=== PATIENT | female | born 1965 | race Caucasian/White ===

== ENCOUNTER 2017-01-07 16:54 | Emergency (ER) | payer OTHER ==
[2017-01-07] MEDS ORDERED: MAG HYDROX/AL HYDROX/SIMETH 30 ML UDC PO STA (17:18)
[2017-01-07] MEDS ORDERED: LIDOCAINE VISCOUS 2% 15 ML UDC MM STA (17:18)
[2017-01-07] MEDS ORDERED: MAG HYDROX/AL HYDROX/SIMETH 30 ML UDC ONE (17:23)
[2017-01-07] MEDS ORDERED: LIDOCAINE VISCOUS 2% 15 ML UDC MM ONE (17:23)
[2017-01-07] MEDS ORDERED: SUCRALFATE 1 GM/10 ML UDC PO STA (17:43)
[2017-01-07] MEDS ORDERED: SUCRALFATE 1 GM/10 ML UDC ONE (17:47)
== END 2017-01-07 18:47 | disposition home or self-care (01) ==
DX: K29.00 Acute gastritis without bleeding (principal); R10.13 Epigastric pain
CPT/HCPCS: 36415; 80053; 83690; 83735; 84484; 85025; 87339; 93005; 93010; 99283; 99284; A9270

== ENCOUNTER 2017-04-12 06:00 | Outpatient (CLI) | payer OTHER | END 2017-04-12 06:01 | disposition short-term general hospital (02) | LOC: EMS 06:00 | PROVIDERS: ATTEND Surgery | DX: R10.10 Upper abdominal pain, unspecified (principal) | CPT/HCPCS: A0425; A0427 ==

== ENCOUNTER 2018-08-06 19:37 | Outpatient (CLI) | payer OTHER | END 2018-08-06 19:38 | disposition critical access hospital (66) | LOC: EMS 19:37 | PROVIDERS: ATTEND Surgery | DX: M25.562 Pain in left knee (principal); W13.8XXA Fall from, out of or through other building or structure, initial encounter; Y92.008 Other place in unspecified non-institutional (private) residence as the place of occurrence of the external cause | CPT/HCPCS: A0425; A0429 ==

== ENCOUNTER 2018-08-06 20:14 | Emergency (ER) | payer OTHER ==
[2018-08-06] MEDS ORDERED: ONDANSETRON ODT 4 MG TABLET TL STA (21:24)
--- NOTE | 2018-08-06 21:28 | XRAY Report ---
Reason: twisted fell injuring L knee Procedure Date: 08/06/2018 Accession Number: [id number] / [id number] Procedure: XR - Knee 3 View LT CPT Code: FULL RESULT: EXAM: LEFT KNEE RADIOGRAPHY EXAM DATE: 08/06/2018 09:12 PM. CLINICAL HISTORY: Left knee pain. COMPARISON: None. TECHNIQUE: 3 views. FINDINGS: Bones: There is no fracture or bone lesion demonstrated. Joints: Minimal to mild tricompartmental DJD changes are seen. Alignment is preserved with no effusion. Soft Tissues: Normal. No soft tissue swelling. IMPRESSION: No acute findings. Minimal to mild DJD changes seen. RADIA
[2018-08-06] MEDS ORDERED: ACETAMINOPHEN 500 MG TABLET PO STA (21:35)
--- NOTE | 2018-08-06 21:46 | ED Physician Documentation ---
PD HPI LOWER EXT INJURY - Stated complaint Stated Complaint: KNEE PAIN - Chief complaint Chief Complaint: Trauma Ext - History obtained from History obtained from: Patient - Additional information Additional information: 53-year-old female presents the emergency department for evaluation of an injury to her Left knee which occurred just prior to arrival at home. The patient stepped through a portion of her deck and twisted. The patient denies injury to her head, neck, torso or upper extremities. Symptoms are described as moderate. No other associated symptoms. Review of Systems Constitutional: denies: Fever Eyes: denies: Loss of vision Cardiac: denies: Chest pain / pressure GI: denies: Abdominal Pain Skin: reports: Abrasion (s). denies: Laceration (s) Musculoskeletal: reports: Extremity pain, Joint pain. denies: Neck pain Neurologic: denies: Head injury Immunocompromised: reports: Chemotherapy PD PAST MEDICAL HISTORY - Present Medications Home Medications: Ambulatory Orders Medication Instructions Recorded Confirmed Levothyroxine [Synthroid] 112 01/07/17 Lisinopril 01/07/17 Pantoprazole [Protonix] 01/07/17 Pantoprazole [Protonix] 40 mg PO DAILY #30 tablet 01/07/17 Sucralfate 1 gm PO QID #40 tablet 01/07/17 - Allergies Allergies/Adverse Reactions: Allergies Allergy/AdvReac Type Severity Reaction Status Date / Time Penicillins Allergy Hives Verified 08/06/18 20:24 - Social History Does the pt smoke?: No Smoking Status: Never smoker PD ED PE NORMAL - General General: Alert and oriented X 3, No acute distress - HEENT HEENT: Atraumatic, PERRL, EOMI, Ears normal - Derm Derm: Other (Abrasions to the left knee) - Extremities Extremities: No deformity, Normal ROM s pain (A comprehensive knee exam was limited secondary to the patient's pain and discomfort). No: No tenderness to palpate (The patient has tenderness to palpation of the left knee, there is no crepitus or joint effusion. The patient does have abrasions and a contusion. The patient has full active range of motion of bilateral hips, knees and ankles. There is a normal dorsalis pedis pulse and normal cap refill), No edema - Neuro Neuro: Alert and oriented X 3, Normal speech - Psych Psych: Normal affect Results - Vitals Vitals: Vital Signs - 24 hr 08/06/18 20:15 Temperature 37.0 C Heart Rate 85 Respiratory 18 Rate Blood Pressure 144/113 H O2 Saturation 99 Oxygen O2 Source Room air - Rads (name of study) XR Knee Radiology: Final report received PD MEDICAL DECISION MAKING - ED course ED course: The patient's x-ray shows no evidence of fracture dislocation, the patient most likely just has a mild contusion. I discussed the possibility of a ligamentous injury and advised close follow-up with primary care for further evaluation. I discussed warning signs and recommended returning to the emergency department immediately for any worsening or any concerns. - Sepsis Event Vital Signs: Vital Signs - 24 hr 08/06/18 20:15 Temperature 37.0 C Heart Rate 85 Respiratory 18 Rate Blood Pressure 144/113 H O2 Saturation 99 Oxygen O2 Source Room air Departure - Departure Disposition: 01 Home, Self Care Clinical Impression: Knee contusion Qualifiers: Encounter type: initial encounter Laterality: unspecified laterality Qualified Code(s): S80.00XA - Contusion of unspecified knee, initial encounter Condition: Good Instructions: Bruises Contusions, ED Sprain Knee Comments: Please follow-up with primary care. Please return to the emergency department for worsening symptoms or any concerns
[2018-08-06 21:53] VITALS: BP 136/102
== END 2018-08-06 22:00 | disposition home or self-care (01) ==
LOC: EDUNIT# → ED 20:14
DX: S80.02XA Contusion of left knee, initial encounter (principal); S80.212A Abrasion, left knee, initial encounter; X50.1XXA Overexertion from prolonged static or awkward postures, initial encounter; Y93.89 Activity, other specified; Y92.008 Other place in unspecified non-institutional (private) residence as the place of occurrence of the external cause
CPT/HCPCS: 73562; 99283; A9270; Q0162

== ENCOUNTER 2018-12-18 19:15 | Outpatient (CLI) | payer OTHER | END 2018-12-18 19:16 | disposition short-term general hospital (02) | LOC: EMS 19:15 | PROVIDERS: ATTEND Surgery | DX: R11.0 Nausea (principal); R10.9 Unspecified abdominal pain; R42 Dizziness and giddiness; C25.9 Malignant neoplasm of pancreas, unspecified; Z79.899 Other long term (current) drug therapy | CPT/HCPCS: A0425; A0427 ==

== ENCOUNTER 2019-01-22 05:29 | Outpatient (CLI) | payer OTHER | END 2019-01-22 05:30 | disposition short-term general hospital (02) | LOC: EMS 05:29 | PROVIDERS: ATTEND Surgery | DX: R68.83 Chills (without fever) (principal); R25.8 Other abnormal involuntary movements; R52 Pain, unspecified; R53.1 Weakness; R53.83 Other fatigue | CPT/HCPCS: A0425; A0427 ==

== ENCOUNTER 2019-02-05 17:16 | Outpatient (CLI) | payer OTHER | END 2019-02-05 17:17 | disposition short-term general hospital (02) | LOC: EMS 17:16 | PROVIDERS: ATTEND Surgery | DX: R10.9 Unspecified abdominal pain (principal); R11.2 Nausea with vomiting, unspecified; R53.83 Other fatigue; R06.02 Shortness of breath; C25.9 Malignant neoplasm of pancreas, unspecified | CPT/HCPCS: A0425; A0427 ==

== ENCOUNTER 2019-07-05 05:11 | Outpatient (CLI) | payer OTHER | END 2019-07-05 05:12 | disposition short-term general hospital (02) | LOC: EMS 05:11 | PROVIDERS: ATTEND Surgery | DX: R11.2 Nausea with vomiting, unspecified (principal) | CPT/HCPCS: A0425; A0427 ==

== ENCOUNTER 2019-12-17 14:01 | Inpatient (IN) | payer OTHER ==
[2019-12-17] MEDS ORDERED: SODIUM CHLORIDE 0.9% IV ONE (15:33)
[2019-12-17] MEDS ORDERED: PHENOBARBITAL IV ONE (15:33)
[2019-12-17] MEDS ORDERED: PHENOBARBITAL IV SCH (16:00)
[2019-12-17] MEDS ORDERED: SODIUM CHLORIDE 0.9% IV SCH (16:00)
[2019-12-17] MEDS: fentaNYL 2,500 MCG in SODIUM CHLORIDE 0.9% 200 ML IV SCH (16:53)
[2019-12-17] MEDS: DEXTROSE 5%-0.9% NACL 1,000 ML IV SCH (18:47)
--- NOTE | 2019-12-17 18:50 | HISTORY & PHYSICAL EXAMINATION ---
DATE OF SERVICE: 12/17/2019 Physician: Mariam Shaw MD HISTORY OF PRESENT ILLNESS: This is a 54-year-old white female with pancreatic cancer with metastasis, who is under Hospice care. She receives high doses of fentanyl and despite this has had breakthrough pain. She also has anxiety on Ativan. Dr. Tone Calvin has requested that she be placed in the inpatient setting for IV medication for pain control, and she is coming in as a direct admission for this. The entire history is obtained from Dr Calvin, since the patient is currently sedated and not arousable. PAST MEDICAL HISTORY 1. Prior history of hypertension. 2. Pancreatic cancer with mets to liver and lung. 3. Cancer pain. 4. Anxiety. ALLERGIES: PENICILLIN. MEDICATIONS 1. Ativan unknown dose 2. Fentanyl patch unknown dose q2d. 3. Morphine oral unknown dose. 4. Levothyroxine 112 mcg daily. FAMILY HISTORY: Noncontributory. SOCIAL HISTORY: She is currently on Hospice care. She is a retired RN. She lives with her adult son who has autism, and with his girlfriend. REVIEW OF SYSTEMS: This was done from chart review and speaking to tang Calvin, patient is currently somnolent on a fentanyl drip and cannot answer questions, the pertinent positives are listed above, the rest are negative. PHYSICAL EXAMINATION GENERAL: White female who appears older than her stated age. She has alopecia and is wearing a hat. She is currently sedated on a iv drip, which was started by Dr Calvin for pain control. VITAL SIGNS: Blood pressure 139/94, now down to 95/64 on the sedative, afebrile, heart rate 75 and regular, room air saturation 96%. HEENT: Shows alopecia and she is wearing a hat. Her eyes are closed, sleeping. Oral mucosa appears moist. NECK: No JVD. CHEST: Clear. HEART: Normal heart sounds with no murmurs. ABDOMEN: Soft, nontender. No guarding. EXTREMITIES: No clubbing, cyanosis or edema. She does have tenting of the skin. NEUROLOGIC: Currently sedated and sleeping and she was not awakened when examined. LABORATORY DATA: No labs. No EKG or chest x-ray was done. IMPRESSION: 1. Pancreatic cancer with metastasis. 2. Cancer pain. 3. Hospice care patient PLAN: Place patient in [facility] Hospice inpatient status for IV pain medications. Obtain hospice consult (done) and Dr. Calvin has stated he will be in control of ordering her pain medications. Restart her medications for thyroid . Begin IV fluids since she is currently not able to eat or drink while she is sedated, to maintain hydration. Dr. Calvin' plan is that she will be transitioned to oral methadone for pain control and if this is not successful, patient may require transfer to [facility] inpatient hospice care. CODE STATUS: DNR. DEEP VENOUS THROMBOSIS PROPHYLAXIS: None on hospice protocol. ATTESTATION: Patient is expected to be discharged or transferred to another facility within 96 hours: Yes. TD: 12/17/2019 18:31 GARCIA
[2019-12-18] MEDS ORDERED: LEVOTHYROXINE 112 MCG TABLET PO SCH (07:00)
--- NOTE | 2019-12-18 09:01 | PHARMACY PROGRESS NOTE ---
- Best Possible Medication History Admit Date and Time: 12/17/19 1522 Processed by: Pharmacy Medication History completed: Yes Patient Interview: Pt unable to participate Secondary Source(s): Written medication list Meds updated via [facility] med list As the person ultimately responsible for medication therapy, providers are able to order a medication from an existing home medication list in [facility] via the "Reconcile Routine" prior to Confirmation of that medication by patient support tech. Such practice is discouraged except when the physician, in their clinical judgment, deems that a medical need exists for a medication without regard to pr evious use.
[2019-12-18] MEDS ORDERED: SODIUM CHLORIDE 0.9% IV SCH (09:19)
[2019-12-18] MEDS ORDERED: PHENOBARBITAL IV SCH (09:19)
[2019-12-18] MEDS: DEXTROSE 5%-0.9% NACL 1,000 ML IV SCH (11:24)
[2019-12-18] MEDS: PANTOPRAZOLE 40 MG TABLET PO SCH (11:25)
--- NOTE | 2019-12-18 12:54 | PROVIDER PROGRESS NOTE ---
Assessment/Plan - Problem List (1) Cancer related pain Assessment/Plan: The Penobarb iv drip plus Fentanyl iv drip combination that was started yesterday made her excessively somnolent and after recommendations from Dr Calvin, the Phenobarb was weaned to off today. As she awoke more, she has been very confused, not oriented to person place or time, cannot remember that she has a Schneider in place, repeatedly stating she wants to get up to urinate. She took her first fluids since being admitted and sedated. Will remove the Fentanyl patches tomorrow, possibly try Methadone transition from iv Fentanyl. Wrist restraint applied this afternoon, for safety, and to not pull out her Schneider. (2) Hypoxia Assessment/Plan: Today she needed supplemental O2 Dr Calvin saw her this afternoon, and suggested that this may be a sign of her pulmonary mets worsening. Continue O2 for preventing air hunger (3) Anxiety Assessment/Plan: She was on Duloxetine, which Dr Calvin does not want restarted, but also was getting po Ativan q2h. Leonidas add scheduled iv Ativan, to prevent withdrawal and for comfort. (4) Urinary retention with incomplete bladder emptying Assessment/Plan: Overnight she needed a straight cath for 500 cc residual in the bladder. Today she tried to urinate in the bedside commode, and after returning to bed, her bladder scan still showed 700 cc. Schneider ordered. (5) Pancreatic cancer Assessment/Plan: She had a partial pancreatectomy and has known liver and lung mets. - Current Meds Current Meds: Current Medications Generic Name Dose Route Start Last Admin Trade Name Freq PRN Reason Stop Dose Admin Fentanyl 2,500 mcg/ Sodium 250 mls @ 10 mls/hr 12/17/19 16:00 12/17/19 16:53 Chloride IV 100 mcg/hr .Q25H GURU 10 mls/hr Administration 100 MCG/HR Dextrose/Sodium Chloride 1,000 mls @ 60 mls/hr 12/17/19 19:00 12/18/19 11:24 D5ns IV 60 mls/hr .[id number] GURU Administration Pantoprazole Sodium 40 mg 12/18/19 10:00 12/18/19 11:25 Protonix PO 40 mg QDAC GURU Administration - Additional Planning My Orders: My Active Orders 12/17/19 15:21 Activity Orders [RC] Q2HR Initiate Bowel Care Protocol [RC] QSHIFT Initiate Personal Care Protoco [RC] .protocol Oral Care - Nursing [RC] PRN Oxygen Therapy [RC] .PRN Port Access and Care - Nursing [RC] QSHIFT Vital Signs [RC] PRN Vital Signs [RC] Q4HR Code Status [OTHERS] Routine Condition of Patient [OTHERS] Routine 12/17/19 18:21 IV Site/Line Care - DI [RC] PRN 12/17/19 19:00 Dextrose 5%-0.9% NaCl [D5ns] 1,000 ml IV 60 mls/hr 12/18/19 09:25 Miscellaenous Nursing Order [RC] QSHIFT 12/18/19 10:00 Pantoprazole [Protonix] 40 mg PO QDAC 12/18/19 Lunch DIET [Dysphagia Advanced Diet] [DIET] 12/19/19 07:00 Levothyroxine [Synthroid] 100 mcg PO QDAC Subjective - Subjective Patient Reports: Other (Sleeping, hard to arouse) Objective Vital Signs: Vital Signs - 24 hr 12/17/19 12/17/19 12/17/19 15:42 17:05 17:25 Temperature 36.9 C 36.4 C L Heart Rate [ 81 75 75 Brachial] Respiratory 16 16 12 Rate Blood Pressure 139/94 H 95/64 98/64 [Right Brachial artery] O2 Saturation 96 90 L 97 12/17/19 12/17/19 12/17/19 18:00 19:00 19:02 Temperature Heart Rate [ 70 Brachial] Respiratory 12 12 12 Rate Blood Pressure 102/74 [Right Brachial artery] O2 Saturation 99 12/17/19 12/17/19 12/17/19 20:00 20:55 20:58 Temperature Heart Rate [ 66 Brachial] Respiratory 13 13 13 Rate Blood Pressure 122/81 H [Right Brachial artery] O2 Saturation 100 12/17/19 12/17/19 12/18/19 22:00 23:00 00:00 Temperature 37.0 C Heart Rate [ 68 Brachial] Respiratory 14 14 16 Rate Blood Pressure 105/78 [Right Brachial artery] O2 Saturation 98 12/18/19 12/18/19 12/18/19 01:00 02:00 03:00 Temperature Heart Rate [ Brachial] Respiratory 16 14 14 Rate Blood Pressure [Right Brachial artery] O2 Saturation 12/18/19 12/18/1912/18/20 04:00 05:00 06:00 Temperature 37.1 C Heart Rate [ 101 H Brachial] Respiratory 14 14 14 Rate Blood Pressure 109/87 H [Right Brachial artery] O2 Saturation 96 12/18/19 12/18/19 12/18/19 08:09 11:19 11:35 Temperature 36.4 C L 36.5 C Heart Rate [ 77 99 Brachial] Respiratory 14 14 10 L Rate Blood Pressure 99/73 111/82 H [Right Brachial artery] O2 Saturation 96 96 Oxygen O2 Source Nasal cannula I&O (Last 24 Hrs): Intake and Output Totals x24h 12/16/19 12/17/19 12/18/19 23:59 23:59 23:59 Intake Total 115.6154 1357 Output Total 500 Balance 115.6154 857 General: Other (Lethargi, on iv sedative drip) HEENT: Mucous membr. moist/pink, Other (Alopecia, wearing a hat) Neck: No JVD Neuro: Other (sedated) Cardiovascular: Regular rate, No murmurs Respiratory: No respiratory distress, Breath sounds nml Abdomen: Soft Extremities: No edema
[2019-12-18] MEDS ORDERED: LORazepam 2 MG/ML VIAL IVP SCH (17:00)
[2019-12-18] MEDS: LORazepam 2 MG/ML VIAL IVP SCH (18:32)
[2019-12-18] MEDS: fentaNYL 2,500 MCG in SODIUM CHLORIDE 0.9% 200 ML IV SCH (18:42)
[2019-12-19] MEDS: LORazepam 2 MG/ML VIAL IVP SCH ×3 (00:15→13:07)
[2019-12-19] MEDS: DEXTROSE 5%-0.9% NACL 1,000 ML IV SCH ×2 (04:22→14:53)
[2019-12-19] MEDS: LEVOTHYROXINE 100 MCG TABLET PO SCH (06:40)
[2019-12-19] MEDS: PANTOPRAZOLE 40 MG TABLET PO SCH (06:40)
[2019-12-19] MEDS: LORazepam 2 MG/ML VIAL IVP PRN ×2 (10:18→20:20)
[2019-12-19] MEDS ORDERED: fentaNYL 2,500 MCG in SODIUM CHLORIDE 0.9% 200 ML IV SCH ×2 (12:11→15:23)
[2019-12-19] MEDS: fentaNYL 2,500 MCG in SODIUM CHLORIDE 0.9% 200 ML IV SCH ×3 (12:39→20:55)
--- NOTE | 2019-12-19 12:56 | PROVIDER PROGRESS NOTE ---
Assessment/Plan - Problem List (1) Cancer related pain Assessment/Plan: Per discussed with Dr. Calvin, we will remove current fentanyl patches and replace with 2 x 100 fentanyl patches for a total of 200 mcg. We will decrease her fentanyl infusion to 80 mcg/h. Hopefully as she becomes more alert today, and soft restraints and Schneider catheter will be able to be removed. I agree the plan. Pharmacy called me she will decrease fentany infusion gradually to 80 mcg/h (2) Hypoxia Assessment/Plan: slight better today, pt need 2 liter of O2 supplement to remain her comfortable breath Continue O2 for preventing air hunger (3) Anxiety Assessment/Plan: it seems good for anxiety control, reduced to Q8H for schedule Ativan for prevention of withdrawal and for comfort, and reduce for her sedation, will gradually reduce to reach the point to control anxiety but without obvious sedative, continue PRN of Ativan (4) Urinary retention with incomplete bladder emptying Assessment/Plan: continue Schneider, urine color is slight dark, increase pt's IVF to 83.3, pt just ate 15% of her breakfast. (5) Pancreatic cancer Assessment/Plan: She had a partial pancreatectomy and has known liver and lung mets. - Current Meds Current Meds: Current Medications Generic Name Dose Route Start Last Admin Trade Name Freq PRN Reason Stop Dose Admin Fentanyl 2 patch 12/19/19 13:00 12/19/19 12:35 Duragesic TOP 2 patch Q3D GURU Administration Fentanyl 2,500 mcg/ Sodium 250 mls @ 10 mls/hr 12/17/19 16:00 12/19/19 12:46 Chloride IV 80 mcg/hr .Q25H GURU 8 mls/hr Administration 100 MCG/HR Dextrose/Sodium Chloride 1,000 mls @ 60 mls/hr 12/17/19 19:00 12/19/19 04:22 D5ns IV 60 mls/hr .[id number] GURU Administration Levothyroxine Sodium 100 mcg 12/19/19 07:00 12/19/19 06:40 Synthroid PO 100 mcg QDAC GURU Administration Lorazepam 1 mg 12/18/19 17:00 12/19/19 06:57 Ativan Inj (Vial) IVP 1 mg Q6HR GURU Administration Lorazepam 0.5 mg 12/18/19 16:30 12/19/19 10:18 Ativan Inj (Vial) IVP 0.5 mg Q2H PRN Administration Anxiety Pantoprazole Sodium 40 mg 12/18/19 10:00 12/19/19 06:40 Protonix PO 40 mg QDAC GURU Administration - Additional Planning My Orders: My Active Orders 12/19/19 13:00 fentaNYL 100 MCG PATCH [Duragesic] 2 patch TOP Q3D Subjective - Subjective Patient Reports: Other (pt report her pain is slight better controlled but still has 5/10.) Objective Vital Signs: Vital Signs - 24 hr 12/18/19 12/18/19 12/18/19 15:10 16:00 16:04 Temperature Heart Rate [ 96 Apical] Heart Rate [ Brachial] Respiratory 14 16 16 Rate Blood Pressure [Left Brachial artery] O2 Saturation 93 12/18/19 12/18/19 12/18/19 17:00 18:00 19:00 Temperature Heart Rate [ Apical] Heart Rate [ Brachial] Respiratory 18 16 18 Rate Blood Pressure [Left Brachial artery] O2 Saturation 12/18/19 12/18/19 12/18/19 20:00 21:00 22:00 Temperature Heart Rate [ Apical] Heart Rate [ Brachial] Respiratory 17 16 18 Rate Blood Pressure [Left Brachial artery] O2 Saturation 12/18/19 12/19/19 12/19/19 23:00 00:00 00:34 Temperature 37.1 C Heart Rate [ Apical] Heart Rate [ 111 H Brachial] Respiratory 16 18 20 Rate Blood Pressure 93/68 [Left Brachial artery] O2 Saturation 99 12/19/19 12/19/19 12/19/19 01:00 02:00 03:00 Temperature Heart Rate [ Apical] Heart Rate [ Brachial] Respiratory 18 20 18 Rate Blood Pressure [Left Brachial artery] O2 Saturation 12/19/19 12/19/19 12/19/19 04:00 05:00 05:10 Temperature Heart Rate [ Apical] Heart Rate [ Brachial] Respiratory 18 18 18 Rate Blood Pressure [Left Brachial artery] O2 Saturation 12/19/19 12/19/19 12/19/19 06:00 06:59 07:54 Temperature Heart Rate [ Apical] Heart Rate [ Brachial] Respiratory 16 20 18 Rate Blood Pressure [Left Brachial artery] O2 Saturation 12/19/19 12/19/19 09:00 10:00 Temperature Heart Rate [ Apical] Heart Rate [ Brachial] Respiratory 18 16 Rate Blood Pressure [Left Brachial artery] O2 Saturation Oxygen O2 Source Nasal cannula I&O (Last 24 Hrs): Intake and Output Totals x24h 12/17/19 12/18/19 12/19/19 23:59 23:59 23:59 Intake Total 115.6154 2318 1459.5 Output Total 1150 225 Balance 115.6154 1168 1234.5 General: Alert, No acute distress, Other (easy fall into sleep) HEENT: Atraumatic Neck: Supple Lymphatic: no adenopathy Neuro: Alert Cardiovascular: Normal S1, Normal S2 Respiratory: Chest non-tender, No respiratory distress Abdomen: Normal bowel sounds Extremities: No edema, Normal pulses ABX Reporting Has patient been on IV antibiotics over the past 48 hours?: No Current Medications - Current Medications Current Medications: Active Medications Fentanyl (Fentanyl) 25 mcg IVP Q15M PRN PRN Reason: Breakthrough Pain Fentanyl (Duragesic) 2 patch TOP Q3D [facility] Last Admin: 12/19/19 12:35 Dose: 2 patch Fentanyl 2,500 mcg/ Sodium (Chloride) 250 mls @ 10 mls/hr IV .Q25H [facility] Last Admin: 12/19/19 12:46 Dose: 80 mcg/hr, 8 mls/hr Dextrose/Sodium Chloride (D5ns) 1,000 mls @ 83.3 mls/hr IV .Q12H1M [facility] Levothyroxine Sodium (Synthroid) 100 mcg PO QDAC [facility] Last Admin: 12/19/19 06:40 Dose: 100 mcg Lorazepam (Ativan Inj (Vial)) 0.5 mg IVP Q2H PRN PRN Reason: Anxiety Last Admin: 12/19/19 10:18 Dose: 0.5 mg Lorazepam (Ativan Inj (Vial)) 1 mg IVP Q8HR [facility] Ondansetron HCl (Zofran Inj) 4 mg IVP Q4HR PRN PRN Reason: Nausea / Vomiting Pantoprazole Sodium (Protonix) 40 mg PO QDAC [facility] Last Admin: 12/19/19 06:40 Dose: 40 mg Duloxetine HCl [Cymbalta] 60 mg PO DAILY 12/18/19 Haloperidol Lactate [Haloperidol Lactate (Oral soln bottle)] 1 mg PO Q6HR PRN 12/18/19 LORazepam [Lorazepam] 2 mg PO Q1H PRN 12/18/19 Levothyroxine [Synthroid] 100 mcg PO QDAC 12/18/19 Metoclopramide HCl 5 mg PO AC 12/18/19 Morphine Sulfate [Morphine Sulf Oral (Roxanol)] 80 mg PO Q1H PRN 12/18/19 Omeprazole 20 mg PO BID 12/18/19 Prochlorperazine [Compazine] 5 mg PO Q6H PRN 12/18/19 Senna [Senokot] 17.2 mg PO DAILY 12/18/19 dexAMETHasone [Decadron] 4 mg PO BIDWM 12/18/19 fentaNYL [Fentanyl 100mcg patch] 3 patch TD Q2D 12/18/19 fentaNYL [Fentanyl 50mcg patch] 1 patch TD Q2D 12/18/19 oxyCODONE [Roxicodone] 60 mg PO Q3H PRN 12/18/19 polyethylene glycoL 3350 [Miralax] 17 gm PO BID 12/18/19
[2019-12-19] MEDS ORDERED: fentaNYL 100 MCG PATCH TOP SCH (13:00)
[2019-12-19] MEDS: fentaNYL 100 MCG/2 ML VIAL IVP PRN (18:38)
[2019-12-19] MEDS ORDERED: LORazepam 2 MG/ML VIAL IVP SCH (22:00)
[2019-12-20] MEDS: ONDANSETRON 4 MG/2 ML VIAL IVP PRN ×2 (00:06→23:31)
[2019-12-20] MEDS ORDERED: LORazepam 2 MG/ML VIAL IVP SCH (01:00)
[2019-12-20] MEDS: DEXTROSE 5%-0.9% NACL 1,000 ML IV SCH ×2 (02:00→13:04)
[2019-12-20] MEDS: LORazepam 2 MG/ML VIAL IVP PRN ×4 (04:33→23:31)
[2019-12-20] MEDS: fentaNYL 100 MCG/2 ML VIAL IVP PRN ×3 (04:47→16:22)
[2019-12-20] MEDS: LEVOTHYROXINE 100 MCG TABLET PO SCH (06:06)
[2019-12-20] MEDS: PANTOPRAZOLE 40 MG TABLET PO SCH (06:06)
[2019-12-20] MEDS: SENNA 8.6 MG TABLET PO SCH (08:20)
[2019-12-20] MEDS: LORazepam 2 MG/ML VIAL IVP SCH ×2 (09:58→18:07)
[2019-12-20] MEDS ORDERED: fentaNYL 2,500 MCG in SODIUM CHLORIDE 0.9% 200 ML IV SCH (10:29)
--- NOTE | 2019-12-20 11:39 | PROVIDER PROGRESS NOTE ---
Assessment/Plan - Problem List (1) Cancer related pain Assessment/Plan: 2/2 pt report she had more pain on today morning. she state she had 7/[address] Amador saw pt and came to the hospitalist office, he recommend to keep fentanyl patch as yesterday 2x 100mcg daily, increase IV of Fentanyl to 150mcg/h . 12/[address] Amador, we will remove current fentanyl patches and replace with 2 x 100 fentanyl patches for a total of 200 mcg. We will decrease her fentanyl infusion to 80 mcg/h. Hopefully as she becomes more alert today, and soft restraints and Schneider catheter will be able to be removed. I agree the plan. Pharmacy called me she will decrease fentany infusion gradually to 80 mcg /h (2) Hypoxia Assessment/Plan: 2 stable, 96% sats on 2 liter of O2 12/19 slight better today, pt need 2 liter of O2 supplement to remain her comfortable breath Continue O2 for preventing air hunger (3) Anxiety Assessment/Plan: [address] Amador recommend, remain 1 mg Ativan tid, and 0.5mg Q2H PRN 2/ it seems good for anxiety control, reduced to Q8H for schedule Ativan for prevention of withdrawal and for comfort, and reduce for her sedation, will gradually reduce to reach the point to control anxiety but without obvious sedative, continue PRN of Ativan (4) Urinary retention with incomplete bladder emptying Assessment/Plan: 2/2 pt has slight low urine output, per Dr. amador, we will keep the same IVF 83.3cc/h. nurse report pt still drink continue Schneider, urine color is slight dark, increase pt's IVF to 83.3, pt just ate 15% of her breakfast. (5) Pancreatic cancer Assessment/Plan: She had a partial pancreatectomy and has known liver and lung mets. - Current Meds Current Meds: Current Medications Generic Name Dose Route Start Last Admin Trade Name Freq PRN Reason Stop Dose Admin Fentanyl 25 mcg 12/17/19 15:45 12/20/19 09:04 Fentanyl IVP 25 mcg Q15M PRN Administration Breakthrough Pain Fentanyl 2 patch 12/19/19 13:00 12/19/19 12:35 Duragesic TOP 2 patch Q3D [facility] Administration Fentanyl 2,500 mcg/ Sodium 250 mls @ 10 mls/hr 12/17/19 16:00 12/20/19 11:15 Chloride IV 150 mcg/hr .Q25H [facility] 15 mls/hr Infusion 100 MCG/HR Dextrose/Sodium Chloride 1,000 mls @ 83.3 mls/hr 12/19/19 14:15 12/20/19 02:00 D5ns IV 83.3 mls/hr .Q12H1M [facility] Administration Levothyroxine Sodium 100 mcg 12/19/19 07:00 12/20/19 06:06 Synthroid PO 100 mcg QDAC [facility] Administration Lorazepam 0.5 mg 12/18/19 16:30 12/20/19 08:20 Ativan Inj (Vial) IVP 0.5 mg Q2H PRN Administration Anxiety Lorazepam 1 mg 12/20/19 10:00 12/20/19 09:58 Ativan Inj (Vial) IVP 1 mg Q8H [facility] Administration Ondansetron HCl 4 mg 12/17/19 15:35 12/20/19 00:06 Zofran Inj IVP 4 mg Q4HR PRN Administration Nausea / Vomiting Pantoprazole Sodium 40 mg 12/18/19 10:00 12/20/19 06:06 Protonix PO 40 mg QDAC [facility] Administration Senna 8.6 - 17.2 mg 12/20/19 09:00 12/20/19 08:20 Senokot PO 8.6 mg DAILY [facility] Administration - Additional Planning My Orders: My Active Orders 12/19/19 13:00 fentaNYL 100 MCG PATCH [Duragesic] 2 patch TOP Q3D 12/19/19 14:09 Restraints [RC] Q4H 12/19/19 14:15 Dextrose 5%-0.9% NaCl [D5ns] 1,000 ml IV 83.3 mls/hr 12/20/19 10:00 LORazepam INJ [Ativan Inj (Vial)] 1 mg IVP Q8H 12/20/19 14:00 Methadone 5 mg PO TID Subjective - Subjective Patient Reports: Pain (pt report she had 7/10 pain) Objective Vital Signs: Vital Signs - 24 hr 12/19/19 12/19/19 12/19/19 12:00 13:00 13:59 Temperature Heart Rate [ Apical] Heart Rate [ Brachial] Respiratory 18 18 16 Rate Blood Pressure [Left Brachial artery] O2 Saturation 12/19/19 12/19/19 12/19/19 15:30 16:00 16:30 Temperature Heart Rate [ Apical] Heart Rate [ Brachial] Respiratory 15 15 15 Rate Blood Pressure [Left Brachial artery] O2 Saturation 12/19/19 12/19/19 12/19/19 17:00 17:15 18:00 Temperature Heart Rate [ Apical] Heart Rate [ 102 H Brachial] Respiratory 15 16 15 Rate Blood Pressure [Left Brachial artery] O2 Saturation 97 12/19/19 12/19/19 12/19/19 19:00 19:44 20:00 Temperature 36.3 C L Heart Rate [ Apical] Heart Rate [ 94 Brachial] Respiratory 20 16 19 Rate Blood Pressure 101/72 [Left Brachial artery] O2 Saturation 96 12/19/19 12/19/19 12/19/19 21:00 21:16 22:00 Temperature Heart Rate [ Apical] Heart Rate [ 101 H Brachial] Respiratory 16 18 16 Rate Blood Pressure [Left Brachial artery] O2 Saturation 97 12/19/19 12/19/19 12/19/19 22:51 22:55 23:00 Temperature Heart Rate [ Apical] Heart Rate [ Brachial] Respiratory 24 15 18 Rate Blood Pressure [Left Brachial artery] O2 Saturation 12/20/19 12/20/19 12/20/19 00:00 00:10 01:00 Temperature 37.0 C Heart Rate [ 91 Apical] Heart Rate [ Brachial] Respiratory 20 18 18 Rate Blood Pressure 108/71 [Left Brachial artery] O2 Saturation 96 12/20/19 12/20/19 12/20/19 02:00 02:58 03:55 Temperature Heart Rate [ Apical] Heart Rate [ Brachial] Respiratory 18 16 18 Rate Blood Pressure [Left Brachial artery] O2 Saturation 12/20/19 12/20/19 12/20/19 05:20 06:00 07:00 Temperature Heart Rate [ Apical] Heart Rate [ Brachial] Respiratory 16 20 20 Rate Blood Pressure [Left Brachial artery] O2 Saturation 12/20/19 12/20/19 12/20/19 07:44 07:46 09:00 Temperature 37.3 C Heart Rate [ Apical] Heart Rate [ 97 Brachial] Respiratory 20 20 16 Rate Blood Pressure 106/71 [Left Brachial artery] O2 Saturation 96 12/20/19 10:00 Temperature Heart Rate [ Apical] Heart Rate [ Brachial] Respiratory 20 Rate Blood Pressure [Left Brachial artery] O2 Saturation Oxygen O2 Source Nasal cannula I&O (Last 24 Hrs): Intake and Output Totals x24h 12/18/19 12/19/19 12/20/19 23:59 23:59 23:59 Intake Total 2318 3209.6 1540.685 Output Total 1150 575 275 Balance 1168 2634.6 1265.685 General: Alert, Mild distress HEENT: Atraumatic Neck: Supple Lymphatic: no adenopathy Neuro: Alert, Non Focal Cardiovascular: Regular rate, Normal S1, Normal S2 Respiratory: Chest non-tender, No respiratory distress Abdomen: Normal bowel sounds, Soft Extremities: No edema, Normal pulses ABX Reporting Has patient been on IV antibiotics over the past 48 hours?: No Current Medications - Current Medications Current Medications: Active Medications Fentanyl (Fentanyl) 25 mcg IVP Q15M PRN PRN Reason: Breakthrough Pain Last Admin: 12/20/19 09:04 Dose: 25 mcg Fentanyl (Duragesic) 2 patch TOP Q3D [facility] Last Admin: 12/19/19 12:35 Dose: 2 patch Fentanyl 2,500 mcg/ Sodium (Chloride) 250 mls @ 10 mls/hr IV .Q25H [facility] Last Infusion: 12/20/19 11:15 Dose: 150 mcg/hr, 15 mls/hr Dextrose/Sodium Chloride (D5ns) 1,000 mls @ 83.3 mls/hr IV .Q12H1M [facility] Last Admin: 12/20/19 02:00 Dose: 83.3 mls/hr Levothyroxine Sodium (Synthroid) 100 mcg PO QDAC [facility] Last Admin: 12/20/19 06:06 Dose: 100 mcg Lorazepam (Ativan Inj (Vial)) 0.5 mg IVP Q2H PRN PRN Reason: Anxiety Last Admin: 12/20/19 08:20 Dose: 0.5 mg Lorazepam (Ativan Inj (Vial)) 1 mg IVP Q8H [facility] Last Admin: 12/20/19 09:58 Dose: 1 mg Methadone HCl () 5 mg PO TID [facility] Ondansetron HCl (Zofran Inj) 4 mg IVP Q4HR PRN PRN Reason: Nausea / Vomiting Last Admin: 12/20/19 00:06 Dose: 4 mg Pantoprazole Sodium (Protonix) 40 mg PO QDAC [facility] Last Admin: 12/20/19 06:06 Dose: 40 mg Senna (Senokot) 8.6 - 17.2 mg PO DAILY [facility] Last Admin: 12/20/19 08:20 Dose: 8.6 mg Duloxetine HCl [Cymbalta] 60 mg PO DAILY 12/18/19 Haloperidol Lactate [Haloperidol Lactate (Oral soln bottle)] 1 mg PO Q6HR PRN 12/18/19 LORazepam [Lorazepam] 2 mg PO Q1H PRN 12/18/19 Levothyroxine [Synthroid] 100 mcg PO QDAC 12/18/19 Metoclopramide HCl 5 mg PO AC 12/18/19 Morphine Sulfate [Morphine Sulf Oral (Roxanol)] 80 mg PO Q1H PRN 12/18/19 Omeprazole 20 mg PO BID 12/18/19 Prochlorperazine [Compazine] 5 mg PO Q6H PRN 12/18/19 Senna [Senokot] 17.2 mg PO DAILY 12/18/19 dexAMETHasone [Decadron] 4 mg PO BIDWM 12/18/19 fentaNYL [Fentanyl 100mcg patch] 3 patch TD Q2D 12/18/19 fentaNYL [Fentanyl 50mcg patch] 1 patch TD Q2D 12/18/19 oxyCODONE [Roxicodone] 60 mg PO Q3H PRN 12/18/19 polyethylene glycoL 3350 [Miralax] 17 gm PO BID 12/18/19
[2019-12-20] MEDS: METHADONE 5 MG TABLET PO SCH ×2 (13:04→23:21)
[2019-12-20] MEDS: fentaNYL 2,500 MCG in SODIUM CHLORIDE 0.9% 200 ML IV SCH (21:18)
[2019-12-21] MEDS: fentaNYL 100 MCG/2 ML VIAL IVP PRN ×3 (01:07→05:35)
[2019-12-21] MEDS: LORazepam 2 MG/ML VIAL IVP PRN ×2 (01:22→05:28)
[2019-12-21] MEDS: DEXTROSE 5%-0.9% NACL 1,000 ML IV SCH ×2 (01:36→14:52)
[2019-12-21] MEDS: LORazepam 2 MG/ML VIAL IVP SCH ×3 (01:47→17:47)
[2019-12-21] MEDS ORDERED: PROMETHAZINE INJ 25 MG in SODIUM CHLORIDE 0.9% 50 ML IV PRN (02:00)
[2019-12-21] MEDS: METHADONE 5 MG TABLET PO SCH ×2 (05:35→14:52)
[2019-12-21] MEDS: PANTOPRAZOLE 40 MG TABLET PO SCH ×2 (05:36→05:42)
[2019-12-21] MEDS: LEVOTHYROXINE 100 MCG TABLET PO SCH ×2 (05:36→05:42)
[2019-12-21] MEDS: SENNA 8.6 MG TABLET PO SCH (11:45)
[2019-12-21] MEDS: DOCUSATE SODIUM 250 MG CAPSULE PO SCH (11:45)
--- NOTE | 2019-12-21 14:14 | PROVIDER PROGRESS NOTE ---
Assessment/Plan - Problem List (1) Cancer related pain Assessment/Plan: 2/3 pt report she feel her pain is good controlled. discussed with for care plan. Dr. Amador is contacting with [facility], hope to transfer to [facility] for hospice care. Dr. Barajas say he will hand the transferring process. 2/2 pt report she had more pain on today morning. she state she had 7/[address] Amador saw pt and came to the hospitalist office, he recommend to keep fentanyl patch as yesterday 2x 100mcg daily, increase IV of Fentanyl to 150mcg/h. 2/ Per discussed with Dr. Amador, we will remove current fentanyl patches and replace with 2 x 100 fentanyl patches for a total of 200 mcg. We will decrease her fentanyl infusion to 80 mcg/h. Hopefully as she becomes more alert today, and soft restraints and Schneider catheter will be able to be removed. I agree the plan. Pharmacy called me she will decrease fentany infusion gradually to 80 mcg/h (2) Hypoxia Assessment/Plan: 2/3 stable, 95% sat on 2 liter of O2 2/2 stable, 96% sats on 2 liter of O2 2/1 slight better today, pt need 2 liter of O2 supplement to remain her comfortable breath Continue O2 for preventing air hunger (3) Anxiety Assessment/Plan: 2/3 stable, O2 saturation is keeping stabilization and pt's anxiety seems controlled. continue current schedule 1 mg ativan Tid and plus PRN 2/[address] Amador recommend, remain 1 mg Ativan tid, and 0.5mg Q2H PRN 2/2 it seems good for anxiety control, reduced to Q8H for schedule Ativan for prevention of withdrawal and for comfort, and reduce for her sedation, will gr adually reduce to reach the point to control anxiety but without obvious sedative, continue PRN of Ativan (4) Urinary retention with incomplete bladder emptying Assessment/Plan: 2/3 pt's urine reduced and color is dark today but pt's IVF is keeping the same 83.3 cc/h. it is likely reflection of pt's metastatic pancreatic cancer to liver, lung or other organism such as kidney. discussed with Dr. Amador and will keep the same IVF on today. continue I&O monitor, encourage pt drink more. 2/2 pt has slight low urine output, per Dr. amador, we will keep the same IVF 83.3cc/h. nurse report pt still drink continue Schneider, urine color is slight dark, increase pt's IVF to 83.3, pt just ate 15% of her breakfast. (5) Pancreatic cancer Assessment/Plan: She had a partial pancreatectomy and has known liver and lung mets. - Current Meds Current Meds: Current Medications Generic Name Dose Route Start Last Admin Trade Name Freq PRN Reason Stop Dose Admin Docusate Sodium 250 - 500 mg 12/21/19 09:00 12/21/19 11:45 Colace 250mg Capsule PO Not Given DAILY [facility] Fentanyl 25 mcg 12/17/19 15:45 12/21/19 05:35 Fentanyl IVP 25 mcg Q15M PRN Administration Breakthrough Pain Fentanyl 2 patch 12/19/19 13:00 12/19/19 12:35 Duragesic TOP 2 patch Q3D [facility] Administration Fentanyl 2,500 mcg/ Sodium 250 mls @ 10 mls/hr 12/17/19 16:00 12/20/19 21:18 Chloride IV 150 mcg/hr .Q25H [facility] 15 mls/hr Administration 100 MCG/HR Dextrose/Sodium Chloride 1,000 mls @ 83.3 mls/hr 12/19/19 14:15 12/21/19 01:36 D5ns IV 83.3 mls/hr .Q12H1M [facility] Administration Promethazine HCl 25 mg/ Sodium 51 mls @ 100 mls/hr 12/21/19 02:00 12/21/19 03:11 Chloride IV Infused Q6H PRN Infusion Nausea / Vomiting Levothyroxine Sodium 100 mcg 12/19/19 07:00 12/21/19 05:42 Synthroid PO Not Given QDAC [facility] Lorazepam 0.5 mg 12/18/19 16:30 12/21/19 05:28 Ativan Inj (Vial) IVP 0.5 mg Q2H PRN Administration Anxiety Lorazepam 1 mg 12/20/19 10:00 12/21/19 11:45 Ativan Inj (Vial) IVP 1 mg Q8H [facility] Administration Methadone HCl 5 mg 12/20/19 14:00 12/21/19 05:35 PO 5 mg TID [facility] Administration Ondansetron HCl 4 mg 12/17/19 15:35 12/20/19 23:31 Zofran Inj IVP 4 mg Q4HR PRN Administration Nausea / Vomiting Pantoprazole Sodium 40 mg 12/18/19 10:00 12/21/19 05:42 Protonix PO Not Given QDAC [facility] Senna 8.6 - 17.2 mg 12/20/19 09:00 12/21/19 11:45 Senokot PO Not Given DAILY [facility] - Additional Planning My Orders: My Active Orders 12/20/19 14:00 Methadone 5 mg PO TID Subjective - Subjective Patient Reports: Feeling Better Objective Vital Signs: Vital Signs - 24 hr 12/20/19 12/20/19 12/20/19 15:00 16:00 16:21 Temperature 36.6 C Heart Rate [ 101 H Brachial] Respiratory 20 20 20 Rate Blood Pressure 116/91 H [Left Brachial artery] O2 Saturation 94 12/20/19 12/20/19 12/20/19 18:00 18:12 19:00 Temperature Heart Rate [ 99 Brachial] Respiratory 18 18 16 Rate Blood Pressure [Left Brachial artery] O2 Saturation 94 12/20/19 12/20/19 12/20/19 20:00 21:00 22:00 Temperature Heart Rate [ Brachial] Respiratory 18 17 20 Rate Blood Pressure [Left Brachial artery] O2 Saturation 12/20/19 12/20/19 12/21/19 23:30 23:36 00:00 Temperature 37.2 C Heart Rate [ 97 Brachial] Respiratory 20 20 18 Rate Blood Pressure 111/78 [Left Brachial artery] O2 Saturation 95 12/21/19 12/21/19 12/21/19 01:00 02:00 03:00 Temperature Heart Rate [ Brachial] Respiratory 24 24 36 H Rate Blood Pressure [Left Brachial artery] O2 Saturation 12/21/19 12/21/19 04:00 06:54 Temperature Heart Rate [ Brachial] Respiratory 48 H 24 Rate Blood Pressure [Left Brachial artery] O2 Saturation Oxygen O2 Source Nasal cannula I&O (Last 24 Hrs): Intake and Output Totals x24h 12/19/19 12/20/19 12/21/19 23:59 23:59 23:59 Intake Total 3209.6 3317.871 1051.0 Output Total 575 1175 200 Balance 2634.6 2142.871 851.0 General: Alert, No acute distress HEENT: Atraumatic Neck: Supple Lymphatic: no adenopathy Neuro: Alert, Non Focal Cardiovascular: Regular rate, Normal S1, Normal S2 Respiratory: Chest non-tender, No respiratory distress Abdomen: Normal bowel sounds Extremities: No edema, Normal pulses ABX Reporting Has patient been on IV antibiotics over the past 48 hours?: No Current Medications - Current Medications Current Medications: Active Medications Docusate Sodium (Colace 250mg Capsule) 250 - 500 mg PO DAILY [facility] Last Admin: 12/21/19 11:45 Dose: Not Given Fentanyl (Fentanyl) 25 mcg IVP Q15M PRN PRN Reason: Breakthrough Pain Last Admin: 12/21/19 05:35 Dose: 25 mcg Fentanyl (Duragesic) 2 patch TOP Q3D [facility] Last Admin: 12/19/19 12:35 Dose: 2 patch Fentanyl 2,500 mcg/ Sodium (Chloride) 250 mls @ 10 mls/hr IV .Q25H [facility] Last Admin: 12/20/19 21:18 Dose: 150 mcg/hr, 15 mls/hr Dextrose/Sodium Chloride (D5ns) 1,000 mls @ 83.3 mls/hr IV .Q12H1M [facility] Last Admin: 12/21/19 01:36 Dose: 83.3 mls/hr Promethazine HCl 25 mg/ Sodium (Chloride) 51 mls @ 100 mls/hr IV Q6H PRN PRN Reason: Nausea / Vomiting Last Infusion: 12/21/19 03:11 Dose: Infused Levothyroxine Sodium (Synthroid) 100 mcg PO QDAC [facility] Last Admin: 12/21/19 05:42 Dose: Not Given Lorazepam (Ativan Inj (Vial)) 0.5 mg IVP Q2H PRN PRN Reason: Anxiety Last Admin: 12/21/19 05:28 Dose: 0.5 mg Lorazepam (Ativan Inj (Vial)) 1 mg IVP Q8H [facility] Last Admin: 12/21/19 11:45 Dose: 1 mg Methadone HCl () 5 mg PO TID [facility] Last Admin: 12/21/19 05:35 Dose: 5 mg Ondansetron HCl (Zofran Inj) 4 mg IVP Q4HR PRN PRN Reason: Nausea / Vomiting Last Admin: 12/20/19 23:31 Dose: 4 mg Pantoprazole Sodium (Protonix) 40 mg PO QDAC [facility] Last Admin: 12/21/19 05:42 Dose: Not Given Senna (Senokot) 8.6 - 17.2 mg PO DAILY [facility] Last Admin: 12/21/19 11:45 Dose: Not Given Duloxetine HCl [Cymbalta] 60 mg PO DAILY 12/18/19 Haloperidol Lactate [Haloperidol Lactate (Oral soln bottle)] 1 mg PO Q6HR PRN 12/18/19 LORazepam [Lorazepam] 2 mg PO Q1H PRN 12/18/19 Levothyroxine [Synthroid] 100 mcg PO QDAC 12/18/19 Metoclopramide HCl 5 mg PO AC 12/18/19 Morphine Sulfate [Morphine Sulf Oral (Roxanol)] 80 mg PO Q1H PRN 12/18/19 Omeprazole 20 mg PO BID 12/18/19 Prochlorperazine [Compazine] 5 mg PO Q6H PRN 12/18/19 Senna [Senokot] 17.2 mg PO DAILY 12/18/19 dexAMETHasone [Decadron] 4 mg PO BIDWM 12/18/19 fentaNYL [Fentanyl 100mcg patch] 3 patch TD Q2D 12/18/19 fentaNYL [Fentanyl 50mcg patch] 1 patch TD Q2D 12/18/19 oxyCODONE [Roxicodone] 60 mg PO Q3H PRN 12/18/19 polyethylene glycoL 3350 [Miralax] 17 gm PO BID 12/18/19
[2019-12-21] MEDS: fentaNYL 2,500 MCG in SODIUM CHLORIDE 0.9% 200 ML IV SCH (15:34)
[2019-12-22] MEDS: LORazepam 2 MG/ML VIAL IVP PRN ×3 (00:25→20:09)
[2019-12-22] MEDS: fentaNYL 100 MCG/2 ML VIAL IVP PRN ×7 (00:25→21:36)
[2019-12-22] MEDS: LORazepam 2 MG/ML VIAL IVP SCH ×3 (02:05→17:51)
[2019-12-22] MEDS: PANTOPRAZOLE 40 MG TABLET PO SCH (06:37)
[2019-12-22] MEDS: LEVOTHYROXINE 100 MCG TABLET PO SCH (06:37)
[2019-12-22] MEDS: DOCUSATE SODIUM 250 MG CAPSULE PO SCH (08:12)
[2019-12-22] MEDS: SENNA 8.6 MG TABLET PO SCH (08:21)
[2019-12-22] MEDS ORDERED: fentaNYL 2,500 MCG in SODIUM CHLORIDE 0.9% 200 ML IV SCH (09:13)
[2019-12-22] MEDS: fentaNYL 2,500 MCG in SODIUM CHLORIDE 0.9% 200 ML IV SCH ×3 (09:58→22:01)
[2019-12-22] MEDS: ONDANSETRON 4 MG/2 ML VIAL IVP PRN ×2 (11:11→18:54)
--- NOTE | 2019-12-22 22:17 | PROVIDER PROGRESS NOTE ---
Subjective - Prog Note Date Prog Note Date: 12/22/19 Prog Note Time: 09:00 - Subjective Pt reports feeling: No change Subjective: Omari notes she has "no complaints" when asked, although is found either singing or moaning today. She appears to be imminently dying today, although this is my first encounter recently with her. Dr. Calvin (Hospice physician) is primary for her case while receiving inpatient care. Current Medications - Current Medications Current Medications: Active Medications: Docusate Sodium (Colace 250mg Capsule) 250 - 500 mg PO DAILY [facility] Fentanyl (Fentanyl) 25 mcg IVP Q15M PRN Fentanyl 2,500 mcg/ Sodium (Chloride) 250 mls @ 22.5 mls/hr IV .Q11H7M [facility] Promethazine HCl 25 mg/ Sodium (Chloride) 51 mls @ 100 mls/hr IV Q6H PRN Levothyroxine Sodium (Synthroid) 100 mcg PO QDAC [facility] Lorazepam (Ativan Inj (Vial) 0.5 mg IVP Q2H PRN Lorazepam (Ativan Inj (Vial)) 1 mg IVP Q8H [facility] Ondansetron HCl (Zofran Inj) 4 mg IVP Q4HR PRN Pantoprazole Sodium (Protonix) 40 mg PO QDAC [facility] Senna (Senokot) 8.6 - 17.2 mg PO DAILY [facility] HOME meds: Duloxetine HCl [Cymbalta] 60 mg PO DAILY 12/18/19 Haloperidol Lactate [Haloperidol Lactate (Oral soln bottle)] 1 mg PO Q6HR PRN 12/18/19 LORazepam [Lorazepam] 2 mg PO Q1H PRN 12/18/19 Levothyroxine [Synthroid] 100 mcg PO QDAC 12/18/19 Metoclopramide HCl 5 mg PO AC 12/18/19 Morphine Sulfate [Morphine Sulf Oral (Roxanol)] 80 mg PO Q1H PRN 12/18/19 Omeprazole 20 mg PO BID 12/18/19 Prochlorperazine [Compazine] 5 mg PO Q6H PRN 12/18/19 Senna [Senokot] 17.2 mg PO DAILY 12/18/19 dexAMETHasone [Decadron] 4 mg PO BIDWM 12/18/19 fentaNYL [Fentanyl 100mcg patch] 3 patch TD Q2D 12/18/19 fentaNYL [Fentanyl 50mcg patch] 1 patch TD Q2D 12/18/19 oxyCODONE [Roxicodone] 60 mg PO Q3H PRN 12/18/19 polyethylene glycoL 3350 [Miralax] 17 gm PO BID 12/18/19 Objective - Vital Signs/Intake & Output Reviewed Vital Signs: Yes Vital Signs: Vital Signs x48h Pulse Resp BP Pulse Ox 12/22/19 21:00 109 H 18 103/76 91 L 12/22/19 16:13 23 Intake & Output: Intake & Output 12/19/19 12/20/19 12/21/19 12/22/19 23:59 23:59 23:59 23:59 Intake Total 3209.6 3317.871 2611.0 1565 Output Total 575 1175 400 475 Balance 2634.6 2142.871 2211.0 1090 - Objective General Appearance: positive: Moderate distress, Anxious, Lethargic Eyes Bilateral: positive: No lid inflammation ENT: positive: Pharyngeal erythema, Dry mucous membranes Neck: positive: No JVD, Stiff neck Respiratory: positive: Chest non-tender, Rhonchi Cardiovascular: positive: Tachycardia Peripheral Pulses: 1+ Radial (R), 1+ Radial (L) Abdomen: positive: Hepatomegaly, Abnml bowel sounds Back: positive: CVA tenderness (R), CVA tenderness (L) Skin: positive: Cyanosis, Diaphoresis, Pallor, Other (poor skin tone, cyanotic fingers at times) Extremities: positive: Pedal edema, Calf tenderness, Joint swelling Neurologic/Psychiatric: positive: Disoriented to person, Disoriented to place, Disoriented to time, Weakness, Sensory loss, Slurred/abnml speech, Depressed mood/affect ABX Reporting Has patient been on IV antibiotics over the past 48 hours?: No Assessment/Plan - Problem List (1) Cancer related pain Impression: The patient has advanced pancreatic cancer and requires hospital treatment for high dose narcotic infusion.
[2019-12-23] MEDS: fentaNYL 100 MCG/2 ML VIAL IVP PRN ×4 (01:03→19:33)
[2019-12-23] MEDS: LORazepam 2 MG/ML VIAL IVP SCH ×3 (01:03→18:03)
[2019-12-23] MEDS: LORazepam 2 MG/ML VIAL IVP PRN ×3 (04:08→21:03)
[2019-12-23] MEDS: ONDANSETRON 4 MG/2 ML VIAL IVP PRN ×3 (06:19→20:58)
[2019-12-23] MEDS: fentaNYL 2,500 MCG in SODIUM CHLORIDE 0.9% 200 ML IV SCH ×3 (08:18→19:32)
[2019-12-23] MEDS: LEVOTHYROXINE 100 MCG TABLET PO SCH (08:26)
[2019-12-23] MEDS: PANTOPRAZOLE 40 MG TABLET PO SCH (08:26)
[2019-12-23] MEDS: SENNA 8.6 MG TABLET PO SCH (08:38)
[2019-12-23] MEDS: DOCUSATE SODIUM 250 MG CAPSULE PO SCH (08:38)
[2019-12-23 09:34] VITALS: BP 93/61
[2019-12-23] MEDS: KETOROLAC 15 MG/ML VIAL IVP SCH ×3 (11:42→23:59)
[2019-12-23] MEDS: PANTOPRAZOLE 40 MG VIAL IVP SCH (16:08)
[2019-12-24] MEDS: LORazepam 2 MG/ML VIAL IVP SCH ×3 (02:06→17:48)
[2019-12-24] MEDS: KETOROLAC 15 MG/ML VIAL IVP SCH ×3 (06:15→19:11)
[2019-12-24] MEDS: fentaNYL 100 MCG/2 ML VIAL IVP PRN ×4 (06:33→16:05)
[2019-12-24] MEDS: LEVOTHYROXINE 100 MCG TABLET PO SCH (06:38)
[2019-12-24] MEDS: fentaNYL 2,500 MCG in SODIUM CHLORIDE 0.9% 200 ML IV SCH ×2 (07:23→18:25)
--- NOTE | 2019-12-24 08:28 | PROVIDER PROGRESS NOTE ---
Subjective - Prog Note Date Prog Note Date: 12/23/19 Prog Note Time: 08:26 - Subjective Pt reports feeling: Worse Subjective: Omari is less responsive, and still having complaints which are intermittent. Heartburn today, so resumed PPI in an IV form. Dr. Calvin agrees with a short course of IV toradol to be used as an adjunct to the fentanyl drip. Current Medications - Current Medications Current Medications: Active Medications: Docusate Sodium (Colace 250mg Capsule) 250 - 500 mg PO DAILY [facility] Last Admin: 12/23/19 08:38 Dose: 250 mg Fentanyl (Fentanyl) 25 mcg IVP Q15M PRN PRN Reason: Breakthrough Pain Last Admin: 12/24/19 06:33 Dose: 25 mcg Promethazine HCl 25 mg/ Sodium (Chloride) 51 mls @ 100 mls/hr IV Q6H PRN PRN Reason: Nausea / Vomiting Last Infusion: 12/21/19 03:11 Dose: Infused Fentanyl 2,500 mcg/ Sodium (Chloride) 250 mls @ 25 mls/hr IV .Q10H [facility] Last Admin: 12/24/19 07:23 Dose: 250 mcg/hr, 25 mls/hr Ketorolac Tromethamine (Toradol Inj (15mg)) 15 mg IVP Q6HR [facility] Stop: 12/24/19 18:01 Last Admin: 12/24/19 06:15 Dose: 15 mg Levothyroxine Sodium (Synthroid) 100 mcg PO QDAC [facility] Last Admin: 12/24/19 06:38 Dose: 100 mcg Lorazepam (Ativan Inj (Vial)) 0.5 mg IVP Q2H PRN PRN Reason: Anxiety Last Admin: 12/23/19 21:03 Dose: 0.5 mg Lorazepam (Ativan Inj (Vial)) 1 mg IVP Q8H [facility] Last Admin: 12/24/19 02:06 Dose: 1 mg Ondansetron HCl (Zofran Inj) 4 mg IVP Q4HR PRN PRN Reason: Nausea / Vomiting Last Admin: 12/23/19 20:58 Dose: 4 mg Pantoprazole Sodium (Protonix) 40 mg IVP BID [facility] Last Admin: 12/23/19 16:08 Dose: 40 mg Senna (Senokot) 8.6 - 17.2 mg PO DAILY [facility] Last Admin: 12/23/19 08:38 Dose: 8.6 mg Duloxetine HCl [Cymbalta] 60 mg PO DAILY 12/18/19 Haloperidol Lactate [Haloperidol Lactate (Oral soln bottle)] 1 mg PO Q6HR PRN 12/18/19 LORazepam [Lorazepam] 2 mg PO Q1H PRN 12/18/19 Levothyroxine [Synthroid] 100 mcg PO QDAC 12/18/19 Metoclopramide HCl 5 mg PO AC 12/18/19 Morphine Sulfate [Morphine Sulf Oral (Roxanol)] 80 mg PO Q1H PRN 12/18/19 Omeprazole 20 mg PO BID 12/18/19 Prochlorperazine [Compazine] 5 mg PO Q6H PRN 12/18/19 Senna [Senokot] 17.2 mg PO DAILY 12/18/19 dexAMETHasone [Decadron] 4 mg PO BIDWM 12/18/19 fentaNYL [Fentanyl 100mcg patch] 3 patch TD Q2D 12/18/19 fentaNYL [Fentanyl 50mcg patch] 1 patch TD Q2D 12/18/19 oxyCODONE [Roxicodone] 60 mg PO Q3H PRN 12/18/19 polyethylene glycoL 3350 [Miralax] 17 gm PO BID 12/18/19 Objective - Vital Signs/Intake & Output Reviewed Vital Signs: Yes Vital Signs: Vital Signs x48h Resp 12/24/19 08:01 16 12/24/19 06:00 20 12/24/19 02:00 19 Intake & Output: Intake & Output 12/21/19 12/22/19 12/23/19 12/24/19 23:59 23:59 23:59 23:59 Intake Total 2611.0 1577 1638 250 Output Total 400 475 400 100 Balance 2211.0 1102 1238 150 - Objective General Appearance: positive: Moderate distress, Lethargic ENT: positive: Dry mucous membranes Neck: positive: No JVD, Stiff neck Respiratory: positive: Chest non-tender, Rhonchi, Other (big deep breaths, also with a RR of 12-24) Cardiovascular: positive: No gallop, Systolic murmur, Decreased pulse(s) Peripheral Pulses: 1+ Radial (R), 1+ Radial (L) Abdomen: positive: Tenderness, Guarding, Hepatomegaly, Abnml bowel sounds Skin: positive: Warm, Diaphoresis, Pallor, Other (pale, cyanotic fingers at times, on oxygen) Extremities: positive: Pedal edema, Joint swelling, Other (generalized edema to all extremites, abdominal edema) Neurologic/Psychiatric: positive: Disoriented to person, Disoriented to place, Disoriented to time, Weakness, Sensory loss, Depressed mood/affect, Other (moaning or singing at times) Assessment/Plan - Problem List (1) Cancer related pain Impression: Continues on a fentanyl gtt, added IV toradol approved by Dr. Calvin.
[2019-12-24] MEDS: SENNA 8.6 MG TABLET PO SCH (10:17)
[2019-12-24] MEDS: DOCUSATE SODIUM 250 MG CAPSULE PO SCH (10:17)
[2019-12-24] MEDS: PANTOPRAZOLE 40 MG VIAL IVP SCH ×2 (10:29→22:02)
[2019-12-24] MEDS: LORazepam 2 MG/ML VIAL IVP PRN ×2 (15:05→22:24)
[2019-12-25] MEDS: LORazepam 2 MG/ML VIAL IVP SCH ×4 (01:08→18:36)
[2019-12-25] MEDS: fentaNYL 2,500 MCG in SODIUM CHLORIDE 0.9% 200 ML IV SCH ×2 (04:04→15:35)
[2019-12-25] MEDS: LORazepam 2 MG/ML VIAL IVP PRN ×4 (05:04→20:22)
[2019-12-25] MEDS: fentaNYL 100 MCG/2 ML VIAL IVP PRN ×5 (05:23→21:42)
[2019-12-25] MEDS: LEVOTHYROXINE 100 MCG TABLET PO SCH (07:48)
[2019-12-25] MEDS: DOCUSATE SODIUM 250 MG CAPSULE PO SCH (09:49)
[2019-12-25] MEDS: SENNA 8.6 MG TABLET PO SCH (09:50)
[2019-12-25] MEDS: PANTOPRAZOLE 40 MG VIAL IVP SCH ×2 (09:50→21:03)
--- NOTE | 2019-12-25 17:31 | PROVIDER PROGRESS NOTE ---
Subjective - Prog Note Date Prog Note Date: 12/24/19 Prog Note Time: 15:00 - Subjective Pt reports feeling: No change Subjective: Omari continues to speak in one word phrases, moans at times, signs other times. Some visitors today. Current Medications - Current Medications Current Medications: Active Medications Docusate Sodium (Colace 250mg Capsule) 250 - 500 mg PO DAILY [facility] Last Admin: 12/25/19 09:49 Dose: Not Given Fentanyl (Fentanyl) 100 mcg IVP Q2H PRN PRN Reason: Breakthrough Pain Last Admin: 12/25/19 13:10 Dose: 100 mcg Promethazine HCl 25 mg/ Sodium (Chloride) 51 mls @ 100 mls/hr IV Q6H PRN PRN Reason: Nausea / Vomiting Last Infusion: 12/21/19 03:11 Dose: Infused Fentanyl 2,500 mcg/ Sodium (Chloride) 250 mls @ 25 mls/hr IV .Q9H6M [facility] Last Admin: 12/25/19 15:35 Dose: 250 mcg/hr Levothyroxine Sodium (Synthroid) 100 mcg PO QDAC [facility] Last Admin: 12/25/19 07:48 Dose: Not Given Lorazepam (Ativan Inj (Vial) 0.5 mg IVP Q2H PRN PRN Reason: Anxiety Last Admin: 12/25/19 15:54 Dose: 0.5 mg Lorazepam (Ativan Inj (Vial)) 1 mg IVP Q6HR [facility] Last Admin: 12/25/19 13:09 Dose: 1 mg Ondansetron HCl (Zofran Inj) 4 mg IVP Q4HR PRN PRN Reason: Nausea / Vomiting Last Admin: 12/23/19 20:58 Dose: 4 mg Pantoprazole Sodium (Protonix) 40 mg IVP BID [facility] Last Admin: 12/25/19 09:50 Dose: Not Given Senna (Senokot) 8.6 - 17.2 mg PO DAILY [facility] Last Admin: 12/25/19 09:50 Dose: Not Given Duloxetine HCl [Cymbalta] 60 mg PO DAILY 12/18/19 Haloperidol Lactate [Haloperidol Lactate (Oral soln bottle)] 1 mg PO Q6HR PRN 12/18/19 LORazepam [Lorazepam] 2 mg PO Q1H PRN 12/18/19 Levothyroxine [Synthroid] 100 mcg PO QDAC 12/18/19 Metoclopramide HCl 5 mg PO AC 12/18/19 Morphine Sulfate [Morphine Sulf Oral (Roxanol)] 80 mg PO Q1H PRN 12/18/19 Omeprazole 20 mg PO BID 12/18/19 Prochlorperazine [Compazine] 5 mg PO Q6H PRN 12/18/19 Senna [Senokot] 17.2 mg PO DAILY 12/18/19 dexAMETHasone [Decadron] 4 mg PO BIDWM 12/18/19 fentaNYL [Fentanyl 100mcg patch] 3 patch TD Q2D 12/18/19 fentaNYL [Fentanyl 50mcg patch] 1 patch TD Q2D 12/18/19 oxyCODONE [Roxicodone] 60 mg PO Q3H PRN 12/18/19 polyethylene glycoL 3350 [Miralax] 17 gm PO BID 12/18/19 Objective - Vital Signs/Intake & Output Reviewed Vital Signs: Yes Vital Signs: Vital Signs x48h Resp 12/25/19 15:00 16 12/25/19 11:00 16 Intake & Output: Intake & Output 12/22/19 12/23/19 12/24/19 12/25/19 23:59 23:59 23:59 23:59 Intake Total 1577 1638 270.441 9406 Output Total 475 400 450 550 Balance 1102 1238 520.000 550 - Objective General Appearance: positive: Moderate distress, Lethargic ENT: positive: Dry mucous membranes Neck: positive: Stiff neck Respiratory: positive: Rhonchi Cardiovascular: positive: Tachycardia, Systolic murmur Peripheral Pulses: 1+ Radial (R), 1+ Radial (L) Abdomen: positive: Nml bowel sounds, Tenderness, Guarding Back: positive: Nml inspection Skin: positive: Warm, Dry, Diaphoresis, Pallor Extremities: positive: Pedal edema, Joint swelling Neurologic/Psychiatric: positive: Disoriented to place, Disoriented to time, Weakness, Sensory loss, Slurred/abnml speech, Depressed mood/affect ABX Reporting Has patient been on IV antibiotics over the past 48 hours?: No Assessment/Plan - Problem List (1) Cancer related pain Impression: Continues on a fentanyl drip, primary is Dr. Calvin see chart.
--- NOTE | 2019-12-25 17:35 | PROVIDER PROGRESS NOTE ---
Subjective - Prog Note Date Prog Note Date: 12/25/19 Prog Note Time: 17:32 - Subjective Pt reports feeling: No change Subjective: More family here to visit today, see Dr. Calvin notes for full details as he is primary provider for this case. Current Medications - Current Medications Current Medications: Active Medications Docusate Sodium (Colace 250mg Capsule) 250 - 500 mg PO DAILY [facility] Last Admin: 12/25/19 09:49 Dose: Not Given Fentanyl (Fentanyl) 100 mcg IVP Q2H PRN PRN Reason: Breakthrough Pain Last Admin: 12/25/19 13:10 Dose: 100 mcg Promethazine HCl 25 mg/ Sodium (Chloride) 51 mls @ 100 mls/hr IV Q6H PRN PRN Reason: Nausea / Vomiting Last Infusion: 12/21/19 03:11 Dose: Infused Fentanyl 2,500 mcg/ Sodium (Chloride) 250 mls @ 27.5 mls/hr IV .Q9H6M [facility] Last Admin: 12/25/19 15:35 Dose: 275 mcg/hr, 27.5 mls/hr Levothyroxine Sodium (Synthroid) 100 mcg PO QDAC [facility] Last Admin: 12/25/19 07:48 Dose: Not Given Lorazepam (Ativan Inj (Vial)) 0.5 mg IVP Q2H PRN PRN Reason: Anxiety Last Admin: 12/25/19 15:54 Dose: 0.5 mg Lorazepam (Ativan Inj (Vial)) 1 mg IVP Q6HR [facility] Last Admin: 12/25/19 13:09 Dose: 1 mg Ondansetron HCl (Zofran Inj) 4 mg IVP Q4HR PRN PRN Reason: Nausea / Vomiting Last Admin: 12/23/19 20:58 Dose: 4 mg Pantoprazole Sodium (Protonix) 40 mg IVP BID [facility] Last Admin: 12/25/19 09:50 Dose: Not Given Senna (Senokot) 8.6 - 17.2 mg PO DAILY [facility] Last Admin: 12/25/19 09:50 Dose: Not Given Objective - Vital Signs/Intake & Output Reviewed Vital Signs: Yes Vital Signs: Vital Signs x48h Resp 12/25/19 15:00 16 12/25/19 11:00 16 Intake & Output: Intake & Output 12/22/19 12/23/19 12/24/1912/25/20 23:59 23:59 23:59 23:59 Intake Total 1577 1638 339.589 7365 Output Total 475 400 450 550 Balance 1102 1238 520.000 550 - Objective General Appearance: positive: Moderate distress, Severe distress, Anxious, Lethargic ENT: positive: Dry mucous membranes Cardiovascular: positive: Irregularly irregular, Systolic murmur, Diastolic murmur, Decreased pulse(s) Peripheral Pulses: 1+ Radial (R), 1+ Radial (L) Abdomen: positive: Tenderness, Guarding, Abnml bowel sounds Skin: positive: Dry, Cyanosis, Diaphoresis, Pallor Neurologic/Psychiatric: positive: Disoriented to person, Disoriented to place, Disoriented to time, Weakness, Sensory loss Assessment/Plan - Problem List (1) Cancer related pain Impression: Patient is on a continuous fentanyl infusion, IV push fentanyl, and IV lorazepam. No longer taking PO meds, no food since admission, no IV fluids. See chart for Dr. Calvin notes.
[2019-12-25] MEDS: ONDANSETRON 4 MG/2 ML VIAL IVP PRN (18:46)
[2019-12-26] MEDS: fentaNYL 100 MCG/2 ML VIAL IVP PRN (00:13)
[2019-12-26] MEDS: LORazepam 2 MG/ML VIAL IVP SCH ×4 (00:13→18:05)
[2019-12-26] MEDS: fentaNYL 2,500 MCG in SODIUM CHLORIDE 0.9% 200 ML IV SCH ×3 (01:03→15:32)
[2019-12-26] MEDS: LORazepam 2 MG/ML VIAL IVP PRN ×2 (03:46→21:35)
[2019-12-26] MEDS: LEVOTHYROXINE 100 MCG TABLET PO SCH (06:32)
[2019-12-26] MEDS: PANTOPRAZOLE 40 MG VIAL IVP SCH ×2 (08:42→21:30)
[2019-12-26] MEDS: DOCUSATE SODIUM 250 MG CAPSULE PO SCH (10:27)
[2019-12-26] MEDS: SENNA 8.6 MG TABLET PO SCH (10:27)
--- NOTE | 2019-12-26 16:22 | PROVIDER PROGRESS NOTE ---
Subjective - Prog Note Date Prog Note Date: 12/26/19 Prog Note Time: 16:19 - Subjective Pt reports feeling: Worse Subjective: Omari continues to have 1-3 stools per day, so scheduled bowel meds were taken off medication list, Docusate changed to PRN only. A new finding today of a possible right leg DVT since her right leg is profoundly larger than her left, with more generalized skin redness. I am unable to obtain a reliable response on exam regarding pain in her leg. She will not follow commands regarding moving her extremities. *Nursing is encouraged to ensure proper central port placement every shift by d rawing back for a + blood return since the patient becomes diaphoretic, and is found at times in a near position making dislodgment of the OATES needle likely. Current Medications - Current Medications Current Medications: Active Medications: Docusate Sodium 250 - 500 mg PO DAILY PRN Fentanyl (Fentanyl) 100 mcg IVP Q2H PRN Promethazine HCl 25 mg/ Sodium (Chloride) 51 mls @ 100 mls/hr IV Q6H PRN Fentanyl 2,500 mcg/ Sodium (Chloride) 250 mls @ 27.5 mls/hr IV .Q9H6M [facility] Levothyroxine Sodium (Synthroid) 100 mcg PO QDAC [facility] Lorazepam (Ativan Inj (Vial) 0.5 mg IVP Q2H PRN Lorazepam (Ativan Inj (Vial) 1 mg IVP Q6HR [facility] Ondansetron HCl (Zofran Inj) 4 mg IVP Q4HR PRN Pantoprazole Sodium (Protonix) 40 mg IVP BID [facility] meds: Duloxetine HCl [Cymbalta] 60 mg PO DAILY 12/18/19 Haloperidol Lactate 1 mg PO Q6HR PRN 12/18/19 LORazepam [Lorazepam] 2 mg PO Q1H PRN 12/18/19 Levothyroxine [Synthroid] 100 mcg PO QDAC 12/18/19 Metoclopramide HCl 5 mg PO AC 12/18/19 Morphine Sulfate [Morphine Sulf Oral (Roxanol)] 80 mg PO Q1H PRN 12/18/19 Omeprazole 20 mg PO BID 12/18/19 Prochlorperazine [Compazine] 5 mg PO Q6H PRN 12/18/19 Senna [Senokot] 17.2 mg PO DAILY 12/18/19 dexAMETHasone [Decadron] 4 mg PO BIDWM 12/18/19 fentaNYL [Fentanyl 100mcg patch] 3 patch TD Q2D 12/18/19 fentaNYL [Fentanyl 50mcg patch] 1 patch TD Q2D 12/18/19 oxyCODONE [Roxicodone] 60 mg PO Q3H PRN 12/18/19 polyethylene glycoL 3350 [Miralax] 17 gm PO BID 12/18/19 Objective - Vital Signs/Intake & Output Reviewed Vital Signs: Yes Vital Signs: Vital Signs x48h Temp Resp 12/26/19 15:36 37.7 C H 20 Intake & Output: Intake & Output 12/23/19 12/24/19 12/25/19 12/26/19 23:59 23:59 23:59 23:59 Intake Total 1638 711.428 5814 1087.958 Output Total 400 450 750 260 Balance 1238 520.000 350 827.958 - Objective General Appearance: positive: Moderate distress, Lethargic Eyes: OU Scleral icterus ENT: positive: Pharyngeal erythema, Oral lesions, Dry mucous membranes Neck: positive: Trachea midline, Stiff neck Respiratory: positive: Chest non-tender, Rhonchi Skin: positive: Warm, Cyanosis, Diaphoresis, Pallor, Embolic lesions Extremities: positive: Calf tenderness, Joint swelling, Other (RLE grossly enlarged, redness greater than left, possibly a DVT) Neurologic/Psychiatric: positive: Disoriented to person, Disoriented to place, Disoriented to time, Weakness, Sensory loss Assessment/Plan - Problem List (1) Cancer related pain Impression: Patient continues on high dose fentanyl infusion of 275 mcg/hour, IV push fentanyl, and IV lorazepam. She continues to be responsive for the most part, chattering, mumbling, or moaning. Frequent nursing cares, daily visits from Dr. Calvin as he is the primary provider.
[2019-12-26] MEDS ORDERED: DOCUSATE SODIUM 250 MG CAPSULE PO PRN (16:24)
[2019-12-27] MEDS: LORazepam 2 MG/ML VIAL IVP SCH ×5 (00:28→23:37)
[2019-12-27] MEDS: fentaNYL 2,500 MCG in SODIUM CHLORIDE 0.9% 200 ML IV SCH ×3 (01:06→19:39)
[2019-12-27] MEDS: LEVOTHYROXINE 100 MCG TABLET PO SCH (06:02)
[2019-12-27] MEDS: PANTOPRAZOLE 40 MG VIAL IVP SCH ×2 (08:31→21:13)
[2019-12-27] MEDS: fentaNYL 100 MCG/2 ML VIAL IVP PRN ×4 (10:15→23:46)
--- NOTE | 2019-12-27 14:36 | PROVIDER PROGRESS NOTE ---
Hospitalist Cross-cover Note - Cross-Cover Note Cross-Cover Note: Omari has been more vocal today (delirium) and nursing has asked about possible Imodium to help with the patients frequent stools. 2 episodes reported on day shift. The patient was noted to have eaten 50% of her lunch. Her right leg continues to appear generally swollen and much larger than the left leg. Both legs are the same temperature. Dr. Calvin was here this morning. She has visitors this afternoon. Nursing confirms that they are getting a positive blood return each shift to ensure her port is functioning properly and she is receiving the intended medications. *The patient remains on high dose IV fentanyl continuous infusion with as needed IV push lorazepam and additional dose fentanyl. She appears to be imminently dying as she does each day. Hospitalist team is happy to provide 24-hour support for nursing and to assist Dr. Calvin who is the patients primary physician.
[2019-12-27] MEDS: LORazepam 2 MG/ML VIAL IVP PRN (19:55)
[2019-12-28] MEDS: fentaNYL 100 MCG/2 ML VIAL IVP PRN ×4 (02:53→19:52)
[2019-12-28] MEDS: fentaNYL 2,500 MCG in SODIUM CHLORIDE 0.9% 200 ML IV SCH ×3 (04:57→23:20)
[2019-12-28] MEDS: LORazepam 2 MG/ML VIAL IVP SCH ×4 (05:40→23:51)
[2019-12-28] MEDS: LEVOTHYROXINE 100 MCG TABLET PO SCH (05:46)
[2019-12-28] MEDS: LORazepam 2 MG/ML VIAL IVP PRN ×2 (08:05→14:50)
[2019-12-28] MEDS: PANTOPRAZOLE 40 MG VIAL IVP SCH ×2 (08:05→21:45)
--- NOTE | 2019-12-28 14:05 | PROVIDER PROGRESS NOTE ---
Hospitalist Cross-cover Note - Cross-Cover Note Cross-Cover Note: Omari has been vocal again today with singing, or moaning today (delirium). She continues to have loose stools. (only 2-4 per day). Her right leg continues to appear generally swollen and much larger than the left leg. Both legs are the same temperature. Dr. Calvin was here this morning. She has visitors today. Nursing confirms that they are getting a positive blood return each shift to ensure her port is functioning properly and she is receiving the intended medications. *The patient remains on high dose IV fentanyl continuous infusion with as needed IV push lorazepam and additional dose fentanyl. She appears to be imminently dying as she does each day. Hospitalist team is happy to provide 24-hour support for nursing and to assist Dr. Calvin who is the patients primary physician.
[2019-12-29] MEDS: LORazepam 2 MG/ML VIAL IVP PRN ×6 (04:05→22:48)
[2019-12-29] MEDS: LORazepam 2 MG/ML VIAL IVP SCH ×3 (06:03→18:09)
[2019-12-29] MEDS: LEVOTHYROXINE 100 MCG TABLET PO SCH (06:09)
[2019-12-29] MEDS ORDERED: SODIUM CHLORIDE 0.9% 250 ML IV ONE (07:50)
[2019-12-29] MEDS: PANTOPRAZOLE 40 MG VIAL IVP SCH ×2 (07:56→21:57)
[2019-12-29] MEDS: fentaNYL 2,500 MCG in SODIUM CHLORIDE 0.9% 200 ML IV SCH ×2 (08:44→18:45)
--- NOTE | 2019-12-29 13:36 | PROVIDER PROGRESS NOTE ---
Hospitalist Cross-cover Note - Cross-Cover Note Cross-Cover Note: Omari has been more talkative today, remains on high dose fentanyl infusion. Nursing has been checking every shift for a positive blood return to ensure the medication is going where intended. No further issues today. Hospitalist team is available for support of nursing staff and to Dr. Calvin (primary care for the patient). LEROY Sen 12/29/2019@ 1336 PM
[2019-12-29] MEDS: fentaNYL 100 MCG/2 ML VIAL IVP PRN ×3 (14:50→22:10)
[2019-12-30] MEDS: LORazepam 2 MG/ML VIAL IVP SCH ×5 (00:16→23:55)
[2019-12-30] MEDS: fentaNYL 100 MCG/2 ML VIAL IVP PRN ×3 (01:05→22:06)
[2019-12-30] MEDS: LORazepam 2 MG/ML VIAL IVP PRN ×4 (02:33→20:22)
[2019-12-30] MEDS: fentaNYL 2,500 MCG in SODIUM CHLORIDE 0.9% 200 ML IV SCH ×2 (04:23→14:52)
[2019-12-30] MEDS: LEVOTHYROXINE 100 MCG TABLET PO SCH (06:35)
[2019-12-30] MEDS: PANTOPRAZOLE 40 MG VIAL IVP SCH ×2 (08:57→20:23)
--- NOTE | 2019-12-30 09:12 | PROVIDER PROGRESS NOTE ---
Assessment/Plan - Problem List (1) Cancer related pain Assessment/Plan: Pt is being comfortable in the bed, and nurse is at the bedside to take care of pt. pt remains on high dose fentanyl infusion. There is no further issues as far on today. Hospitalist team and nurse staff team are available to support for pt. we will followup Dr. Calvin, hospice team of pt's primary care to pt. - Current Meds Current Meds: Current Medications Generic Name Dose Route Start Last Admin Trade Name Freq PRN Reason Stop Dose Admin Fentanyl 100 mcg 12/25/19 11:41 12/30/19 03:19 Fentanyl IVP 100 mcg Q2H PRN Administration Breakthrough Pain Promethazine HCl 25 mg/ Sodium 51 mls @ 100 mls/hr 12/21/19 02:00 12/21/19 03:11 Chloride IV Infused Q6H PRN Infusion Nausea / Vomiting Fentanyl 2,500 mcg/ Sodium 250 mls @ 27.5 mls/hr 12/22/19 22:28 12/30/19 04:23 Chloride IV 275 mcg/hr .Q9H6M [facility] 27.5 mls/hr Administration 275 MCG/HR Levothyroxine Sodium 100 mcg 12/19/19 07:00 12/30/19 06:35 Synthroid PO Not Given QDAC [facility] Lorazepam 1 mg 12/24/19 17:00 12/30/19 06:31 Ativan Inj (Vial) IVP 1 mg Q6HR [facility] Administration Lorazepam 1 mg 12/30/19 00:49 12/30/19 04:41 Ativan Inj (Vial) IVP 1 mg Q2H PRN Administration Anxiety Ondansetron HCl 4 mg 12/17/19 15:35 12/25/19 18:46 Zofran Inj IVP 4 mg Q4HR PRN Administration Nausea / Vomiting Pantoprazole Sodium 40 mg 12/23/19 16:00 12/30/19 08:57 Protonix IVP 40 mg BID [facility] Administration Objective Vital Signs: Vital Signs - 24 hr 12/29/19 12/29/19 12/29/19 12:09 15:53 19:00 Respiratory 16 12 16 Rate 12/30/19 12/30/19 12/30/19 00:13 03:26 04:00 Respiratory 19 19 19 Rate 12/30/19 12/30/19 06:35 08:00 Respiratory 18 18 Rate Oxygen O2 Source Room air I&O (Last 24 Hrs): Intake and Output Totals x24h 12/28/19 12/29/19 12/30/19 23:59 23:59 23:59 Intake Total 1201 920 490 Output Total 575 500 150 Balance 626 420 340 ABX Reporting Has patient been on IV antibiotics over the past 48 hours?: No
[2019-12-30] MEDS: ONDANSETRON 4 MG/2 ML VIAL IVP PRN (14:11)
[2019-12-30] MEDS: SODIUM CHLORIDE 0.9% 500 ML IV PRN (22:16)
[2019-12-30] MEDS: SODIUM CHLORIDE FLUSH 0.9% 10 ML SYRINGE IVP PRN (23:58)
[2019-12-31] MEDS: fentaNYL 2,500 MCG in SODIUM CHLORIDE 0.9% 200 ML IV SCH ×2 (00:53→10:08)
[2019-12-31] MEDS: SODIUM CHLORIDE FLUSH 0.9% 10 ML SYRINGE IVP PRN ×2 (01:43→13:34)
[2019-12-31] MEDS: fentaNYL 100 MCG/2 ML VIAL IVP PRN ×5 (01:43→21:56)
[2019-12-31] MEDS: LORazepam 2 MG/ML VIAL IVP SCH ×3 (05:32→17:24)
[2019-12-31] MEDS: LEVOTHYROXINE 100 MCG TABLET PO SCH (05:34)
[2019-12-31] MEDS: PANTOPRAZOLE 40 MG VIAL IVP SCH ×2 (08:14→20:42)
[2019-12-31] MEDS: ONDANSETRON 4 MG/2 ML VIAL IVP PRN (08:14)
[2019-12-31] MEDS: LORazepam 2 MG/ML VIAL IVP PRN ×5 (08:14→21:00)
--- NOTE | 2019-12-31 13:50 | PROVIDER PROGRESS NOTE ---
Hospitalist Cross-cover Note - Cross-Cover Note Cross-Cover Note: pt hope her dog can come to hospital, her dog has been with her for 13 yrs. Nurse report pt's son will bring the dog come to visit pt. Otherwise, Pt is being comfortable in the bed, and nurse is at the bedside to give meds and to do nurse care for pt. pt remains on high dose fentanyl infusion, and Ativan for her anxiety. Hospitalist team and nurse staff team are available and continue to support pt. we will followup Dr. Calvin, hospice team of pt's primary care to pt.
[2020-01-01] MEDS: fentaNYL 100 MCG/2 ML VIAL IVP PRN ×4 (00:50→22:26)
[2020-01-01] MEDS: LORazepam 2 MG/ML VIAL IVP PRN ×3 (02:32→20:51)
[2020-01-01] MEDS: SODIUM CHLORIDE FLUSH 0.9% 10 ML SYRINGE IVP PRN ×3 (02:33→22:26)
[2020-01-01] MEDS: LORazepam 2 MG/ML VIAL IVP SCH ×4 (06:33→17:35)
[2020-01-01] MEDS: LEVOTHYROXINE 100 MCG TABLET PO SCH (06:50)
[2020-01-01] MEDS: fentaNYL 2,500 MCG in SODIUM CHLORIDE 0.9% 200 ML IV SCH ×3 (06:51→22:29)
[2020-01-01] MEDS: PANTOPRAZOLE 40 MG VIAL IVP SCH ×2 (11:39→20:55)
[2020-01-01] MEDS: SODIUM CHLORIDE 0.9% 500 ML IV PRN (14:55)
[2020-01-02] MEDS: LORazepam 2 MG/ML VIAL IVP SCH ×5 (00:03→23:45)
[2020-01-02] MEDS: SODIUM CHLORIDE FLUSH 0.9% 10 ML SYRINGE IVP PRN ×7 (00:03→23:44)
[2020-01-02] MEDS: fentaNYL 100 MCG/2 ML VIAL IVP PRN ×9 (00:20→23:45)
[2020-01-02] MEDS: fentaNYL 2,500 MCG in SODIUM CHLORIDE 0.9% 200 ML IV SCH ×3 (03:30→23:52)
[2020-01-02] MEDS: LEVOTHYROXINE 100 MCG TABLET PO SCH (06:09)
[2020-01-02] MEDS ORDERED: BISACODYL 10 MG SUPP PR SCH (09:00)
[2020-01-02] MEDS: PANTOPRAZOLE 40 MG VIAL IVP SCH ×2 (09:27→21:24)
[2020-01-02] MEDS: LORazepam 2 MG/ML VIAL IVP PRN ×3 (10:22→21:24)
[2020-01-02] MEDS: SODIUM CHLORIDE 0.9% 500 ML IV PRN (15:12)
--- NOTE | 2020-01-02 16:10 | PROVIDER PROGRESS NOTE ---
Hospitalist Cross-cover Note - Cross-Cover Note Cross-Cover Note: Omari has been intermittently calling out, continued confusion. Disorientated, confirmed with Dr. Calvin. Remains on high dose fentanyl infusion (275 mcg per hour), with as needed, IV fentanyl & IV lorazepam for breakthrough symptom management. Nursing has been checking every shift for a positive blood return to ensure the medication is going where intended. No further issues today. Hospitalist team is available for support of nursing staff and to Dr. Calvin (primary care for the patient). LEROY Sen 01/02/2020@ 1609 PM
[2020-01-03] MEDS: fentaNYL 100 MCG/2 ML VIAL IVP PRN ×8 (03:11→22:55)
[2020-01-03] MEDS: SODIUM CHLORIDE FLUSH 0.9% 10 ML SYRINGE IVP PRN ×9 (03:19→20:52)
[2020-01-03] MEDS: LORazepam 2 MG/ML VIAL IVP SCH ×4 (05:25→23:31)
[2020-01-03] MEDS: LORazepam 2 MG/ML VIAL IVP PRN ×4 (07:00→22:27)
[2020-01-03] MEDS: LEVOTHYROXINE 100 MCG TABLET PO SCH (07:00)
[2020-01-03] MEDS: PANTOPRAZOLE 40 MG VIAL IVP SCH ×2 (08:44→20:51)
[2020-01-03] MEDS: SENNA 8.6 MG TABLET PO SCH (08:45)
[2020-01-03] MEDS: fentaNYL 2,500 MCG in SODIUM CHLORIDE 0.9% 200 ML IV SCH ×2 (10:34→20:35)
--- NOTE | 2020-01-03 16:13 | PROVIDER PROGRESS NOTE ---
Hospitalist Cross-cover Note - Cross-Cover Note Cross-Cover Note: Omari has been more calm today with less episodes of calling out. Nursing has been spending more one-on-one time. The patient remains confused and disorientated, unchanged. Remains on high dose fentanyl infusion (275 mcg per hour), with as needed, IV fentanyl & IV lorazepam for breakthrough symptom management. Nursing has been checking every shift for a positive blood return to ensure the medication is going where intended. No further issues today. Hospitalist team is available for support of nursing staff and to Dr. Calvin (primary care for the patient). LEROY Sen 01/03/2020@ 1613 PM
[2020-01-03] MEDS ORDERED: SODIUM CHLORIDE 0.9% 500 ML ONE (20:16)
[2020-01-03] MEDS ORDERED: SODIUM CHLORIDE 0.9% 1,000 ML IV SCH (21:00)
[2020-01-03] MEDS ORDERED: SODIUM CHLORIDE 0.9% 500 ML IV ONE (22:00)
[2020-01-03] MEDS: ONDANSETRON 4 MG/2 ML VIAL IVP PRN (22:43)
[2020-01-04] MEDS: fentaNYL 100 MCG/2 ML VIAL IVP PRN ×11 (00:30→23:23)
[2020-01-04] MEDS: LORazepam 2 MG/ML VIAL IVP PRN ×7 (02:48→22:58)
[2020-01-04] MEDS: fentaNYL 2,500 MCG in SODIUM CHLORIDE 0.9% 200 ML IV SCH ×2 (05:42→16:57)
[2020-01-04] MEDS: LEVOTHYROXINE 100 MCG TABLET PO SCH (06:01)
[2020-01-04] MEDS: LORazepam 2 MG/ML VIAL IVP SCH ×3 (06:01→17:57)
[2020-01-04] MEDS: PANTOPRAZOLE 40 MG VIAL IVP SCH ×2 (08:37→21:48)
[2020-01-04] MEDS: SENNA 8.6 MG TABLET PO SCH (08:37)
[2020-01-04] MEDS: ONDANSETRON 4 MG/2 ML VIAL IVP PRN ×2 (08:37→13:50)
[2020-01-04] MEDS ORDERED: SODIUM CHLORIDE 0.9% 500 ML IV PRN (15:39)
[2020-01-04] MEDS ORDERED: SODIUM CHLORIDE 0.9% 500 ML ONE (17:02)
[2020-01-04] MEDS: SODIUM CHLORIDE 0.9% 1,000 ML IV SCH (17:10)
--- NOTE | 2020-01-04 18:07 | PROVIDER PROGRESS NOTE ---
Hospitalist Cross-cover Note - Cross-Cover Note Cross-Cover Note: Omari has been increasingly calling out, despite nursing staff efforts of one-on-one time for reassurance. The patient remains confused and disorientated, unchanged. Remains on high dose fentanyl infusion (increased to 350 mcg per hour), with as needed, IV fentanyl & IV lorazepam for breakthrough symptom management. Nursing has been checking every shift for a positive blood return to ensure the medication is going where intended. No further issues today. Hospitalist team is available for support of nursing staff and to Dr. Calvin (primary care for the patient). LEROY Sen 01/04/2020@ 1807 PM
[2020-01-04] MEDS: SODIUM CHLORIDE FLUSH 0.9% 10 ML SYRINGE IVP PRN ×2 (18:51→20:52)
[2020-01-05] MEDS: SODIUM CHLORIDE FLUSH 0.9% 10 ML SYRINGE IVP PRN ×5 (00:35→23:55)
[2020-01-05] MEDS: LORazepam 2 MG/ML VIAL IVP SCH ×5 (00:37→23:53)
[2020-01-05] MEDS: fentaNYL 2,500 MCG in SODIUM CHLORIDE 0.9% 200 ML IV SCH ×3 (00:56→17:40)
[2020-01-05] MEDS: fentaNYL 100 MCG/2 ML VIAL IVP PRN ×5 (01:06→18:40)
[2020-01-05] MEDS: LORazepam 2 MG/ML VIAL IVP PRN ×2 (04:04→14:19)
[2020-01-05] MEDS: LEVOTHYROXINE 100 MCG TABLET PO SCH (06:28)
[2020-01-05] MEDS: ONDANSETRON 4 MG/2 ML VIAL IVP PRN (07:43)
[2020-01-05] MEDS: PANTOPRAZOLE 40 MG VIAL IVP SCH ×2 (08:27→21:24)
[2020-01-05] MEDS: SENNA 8.6 MG TABLET PO SCH (08:28)
--- NOTE | 2020-01-05 16:19 | PROVIDER PROGRESS NOTE ---
Hospitalist Cross-cover Note - Cross-Cover Note Cross-Cover Note: Omari has been much more at peace today since nursing staff was able to provide one-on-one care for most of the day. Nursing judgment to skip IV lorazepam at times. Urine in burnett bag appears very dark, thick, and concentrated. Poor PO intake. The patient remains confused and disorientated, unchanged. Remains on high dose fentanyl infusion (350 mcg per hour), with as needed, IV fentanyl & IV lorazepam for breakthrough symptom management. Nursing has been checking every shift for a positive blood return to ensure the medication is going where intended. A few visitors today. LEROY Sen 01/05/2020@ 1617 PM
[2020-01-06] MEDS: fentaNYL 2,500 MCG in SODIUM CHLORIDE 0.9% 200 ML IV SCH ×3 (00:54→17:04)
[2020-01-06] MEDS: SODIUM CHLORIDE FLUSH 0.9% 10 ML SYRINGE IVP PRN ×6 (01:52→16:05)
[2020-01-06] MEDS: LORazepam 2 MG/ML VIAL IVP PRN ×6 (01:52→21:20)
[2020-01-06] MEDS: fentaNYL 100 MCG/2 ML VIAL IVP PRN ×4 (02:33→19:05)
[2020-01-06] MEDS: LORazepam 2 MG/ML VIAL IVP SCH ×3 (06:44→18:09)
[2020-01-06] MEDS: PANTOPRAZOLE 40 MG VIAL IVP SCH ×2 (07:00→21:20)
[2020-01-06] MEDS: LEVOTHYROXINE 100 MCG TABLET PO SCH ×2 (07:00→07:04)
[2020-01-06] MEDS: SENNA 8.6 MG TABLET PO SCH (09:09)
[2020-01-06] MEDS: HALOPERIDOL 5 MG/ML VIAL IVP SCH ×2 (14:46→22:33)
--- NOTE | 2020-01-06 17:18 | PROVIDER PROGRESS NOTE ---
Hospitalist Cross-cover Note - Cross-Cover Note Cross-Cover Note: Omari continues to enjoy her one-on-one care with nursing staff. Urine in burnett bag appears very dark, thick, and concentrated. Poor PO intake. The patient remains confused and disorientated, unchanged, calls out at times. Remains on high dose fentanyl infusion (350 mcg per hour), with as needed, IV fentanyl & IV lorazepam for breakthrough symptom management. Nursing has been checking every shift for a positive blood return to ensure the medication is going where intended. LEROY Sen 01/06/2020@ 1717 PM
[2020-01-06] MEDS: SODIUM CHLORIDE 0.9% 1,000 ML IV SCH (18:07)
[2020-01-07] MEDS: fentaNYL 2,500 MCG in SODIUM CHLORIDE 0.9% 200 ML IV SCH ×4 (00:13→22:05)
[2020-01-07] MEDS: SODIUM CHLORIDE FLUSH 0.9% 10 ML SYRINGE IVP PRN ×4 (01:11→20:26)
[2020-01-07] MEDS: LORazepam 2 MG/ML VIAL IVP SCH ×4 (01:11→18:09)
[2020-01-07] MEDS: LEVOTHYROXINE 100 MCG TABLET PO SCH (06:23)
[2020-01-07] MEDS: HALOPERIDOL 5 MG/ML VIAL IVP SCH ×3 (06:57→21:09)
[2020-01-07] MEDS: PANTOPRAZOLE 40 MG VIAL IVP SCH ×2 (09:39→20:26)
[2020-01-07] MEDS: SENNA 8.6 MG TABLET PO SCH (09:42)
--- NOTE | 2020-01-07 14:43 | PROVIDER PROGRESS NOTE ---
Hospitalist Cross-cover Note - Cross-Cover Note Cross-Cover Note: Omari continues to enjoy her one-on-one care with nursing staff, overall much more calm. Urine in burnett bag appears very dark, thick, and concentrated. Poor PO intake. The patient remains confused and disorientated, unchanged, calls out at times. Remains on high dose fentanyl infusion (350 mcg per hour), with as needed, IV fentanyl & IV lorazepam for breakthrough symptom management. LEROY Sen 01/07/2020@ 1443 PM
[2020-01-07] MEDS: fentaNYL 100 MCG/2 ML VIAL IVP PRN (19:09)
[2020-01-07] MEDS: LORazepam 2 MG/ML VIAL IVP PRN (19:33)
[2020-01-07] MEDS: SODIUM CHLORIDE 0.9% 1,000 ML IV SCH (21:11)
[2020-01-08] MEDS: LORazepam 2 MG/ML VIAL IVP SCH ×4 (03:33→18:06)
[2020-01-08] MEDS: fentaNYL 2,500 MCG in SODIUM CHLORIDE 0.9% 200 ML IV SCH ×3 (05:22→21:10)
[2020-01-08] MEDS: HALOPERIDOL 5 MG/ML VIAL IVP SCH ×3 (06:33→20:51)
[2020-01-08] MEDS: SENNA 8.6 MG TABLET PO SCH (08:09)
[2020-01-08] MEDS: PANTOPRAZOLE 40 MG VIAL IVP SCH ×2 (08:09→20:50)
[2020-01-08] MEDS: fentaNYL 100 MCG/2 ML VIAL IVP PRN ×3 (08:12→18:06)
[2020-01-08] MEDS ORDERED: HALOPERIDOL 5 MG/ML VIAL IVP SCH (09:00)
[2020-01-08] MEDS: LEVOTHYROXINE 100 MCG TABLET PO SCH (15:29)
--- NOTE | 2020-01-08 16:09 | PROVIDER PROGRESS NOTE ---
Hospitalist Cross-cover Note - Cross-Cover Note Cross-Cover Note: Omari continues to enjoy her one-on-one care with nursing staff, overall much more calm. Urine in burnett bag appears very dark, thick, and concentrated. Drank some rashmi mist soda, some bites of pudding. The patient remains confused and disorientated, unchanged, calls out at times. Remains on high dose fentanyl infusion (350 mcg per hour), with as needed, IV fentanyl & IV lorazepam for breakthrough symptom management. Adjustment to the haldol dose was made as per Dr. Calvin who requested this. LEROY Sen 01/08/2020@ 1613 PM
[2020-01-08] MEDS: LORazepam 2 MG/ML VIAL IVP PRN (16:45)
[2020-01-08] MEDS ORDERED: HALOPERIDOL 5 MG/ML VIAL IVP ONE (18:02)
[2020-01-09] MEDS: LORazepam 2 MG/ML VIAL IVP SCH ×5 (00:06→23:43)
[2020-01-09] MEDS: HALOPERIDOL 5 MG/ML VIAL IVP SCH ×6 (00:46→20:32)
[2020-01-09] MEDS: fentaNYL 100 MCG/2 ML VIAL IVP PRN ×5 (01:38→22:05)
[2020-01-09] MEDS: fentaNYL 2,500 MCG in SODIUM CHLORIDE 0.9% 200 ML IV SCH ×3 (04:19→20:59)
[2020-01-09] MEDS: LEVOTHYROXINE 100 MCG TABLET PO SCH (06:19)
[2020-01-09] MEDS: PANTOPRAZOLE 40 MG VIAL IVP SCH ×2 (08:17→20:32)
[2020-01-09] MEDS: SENNA 8.6 MG TABLET PO SCH (08:18)
[2020-01-09] MEDS: SODIUM CHLORIDE FLUSH 0.9% 10 ML SYRINGE IVP PRN ×3 (08:18→13:45)
[2020-01-09] MEDS ORDERED: HALOPERIDOL 5 MG/ML VIAL IVP ONE (13:09)
[2020-01-09] MEDS: LORazepam 2 MG/ML VIAL IVP PRN (21:02)
[2020-01-10] MEDS: HALOPERIDOL 5 MG/ML VIAL IVP SCH ×6 (00:37→20:37)
[2020-01-10] MEDS: fentaNYL 2,500 MCG in SODIUM CHLORIDE 0.9% 200 ML IV SCH ×3 (04:03→19:27)
[2020-01-10] MEDS: SODIUM CHLORIDE FLUSH 0.9% 10 ML SYRINGE IVP PRN ×5 (04:49→23:54)
[2020-01-10] MEDS: LORazepam 2 MG/ML VIAL IVP SCH ×4 (05:30→23:54)
[2020-01-10] MEDS: fentaNYL 100 MCG/2 ML VIAL IVP PRN ×7 (06:03→21:40)
[2020-01-10] MEDS ORDERED: BISACODYL 10 MG SUPP PR ONE (07:29)
[2020-01-10] MEDS: PANTOPRAZOLE 40 MG VIAL IVP SCH ×2 (10:01→20:36)
[2020-01-10] MEDS: SENNA 8.6 MG TABLET PO SCH (10:02)
--- NOTE | 2020-01-10 17:35 | PROVIDER PROGRESS NOTE ---
Hospitalist Cross-cover Note - Cross-Cover Note Cross-Cover Note: Despite visitors, Omari still called out in pain, requiring more frequent PRN medications. Urine in burnett bag appears very dark, thick, and concentrated. Remains on high dose fentanyl infusion (350 mcg per hour), with as needed, IV fentanyl & IV lorazepam for breakthrough symptom management, also on IV Haldol with increased dosing. Dr. Calvin rounded today. LEROY Sen 01/09/2020@ 1735 PM
[2020-01-10] MEDS: LORazepam 2 MG/ML VIAL IVP PRN ×2 (18:39→21:15)
[2020-01-11] MEDS: HALOPERIDOL 5 MG/ML VIAL IVP SCH ×6 (01:02→22:12)
[2020-01-11] MEDS: fentaNYL 100 MCG/2 ML VIAL IVP PRN ×7 (02:31→22:41)
[2020-01-11] MEDS: fentaNYL 2,500 MCG in SODIUM CHLORIDE 0.9% 200 ML IV SCH ×4 (02:35→18:07)
[2020-01-11] MEDS: LORazepam 2 MG/ML VIAL IVP PRN ×2 (03:29→15:55)
[2020-01-11] MEDS: SODIUM CHLORIDE FLUSH 0.9% 10 ML SYRINGE IVP PRN ×8 (03:32→22:12)
[2020-01-11] MEDS: LORazepam 2 MG/ML VIAL IVP SCH ×3 (06:47→19:18)
[2020-01-11] MEDS: PANTOPRAZOLE 40 MG VIAL IVP SCH ×2 (08:52→22:12)
[2020-01-11] MEDS: SODIUM CHLORIDE 0.9% 250 ML IV SCH (10:02)
[2020-01-11] MEDS: SENNA 8.6 MG TABLET PO SCH (10:02)
--- NOTE | 2020-01-11 22:28 | PROVIDER PROGRESS NOTE ---
Hospitalist Cross-cover Note - Cross-Cover Note Cross-Cover Note: Omari still called out in pain, requiring more frequent PRN medications. Urine in burnett bag appears very dark, thick, and concentrated. Remains on high dose fentanyl infusion (400 mcg per hour), with as needed, IV fentanyl & IV lorazepam for breakthrough symptom management, also on IV Haldol with increased dosing. Dr. Calvin adjusted continuous infusion based on PRN doses and patient's symptoms LEROY Sen 01/11/2020@ 2235 PM
[2020-01-12] MEDS: fentaNYL 2,500 MCG in SODIUM CHLORIDE 0.9% 200 ML IV SCH ×5 (00:14→21:01)
[2020-01-12] MEDS: SODIUM CHLORIDE FLUSH 0.9% 10 ML SYRINGE IVP PRN ×9 (00:27→23:37)
[2020-01-12] MEDS: LORazepam 2 MG/ML VIAL IVP SCH ×5 (00:27→23:34)
[2020-01-12] MEDS: HALOPERIDOL 5 MG/ML VIAL IVP SCH ×6 (00:50→21:59)
[2020-01-12] MEDS: LORazepam 2 MG/ML VIAL IVP PRN ×2 (03:33→16:53)
[2020-01-12] MEDS: SODIUM CHLORIDE 0.9% 250 ML IV SCH ×2 (09:21→21:57)
[2020-01-12] MEDS: PANTOPRAZOLE 40 MG VIAL IVP SCH ×2 (09:22→21:59)
[2020-01-12] MEDS: SENNA 8.6 MG TABLET PO SCH (10:29)
[2020-01-12] MEDS: fentaNYL 100 MCG/2 ML VIAL IVP PRN (14:18)
[2020-01-13] MEDS: SODIUM CHLORIDE FLUSH 0.9% 10 ML SYRINGE IVP PRN ×4 (00:57→08:57)
[2020-01-13] MEDS: HALOPERIDOL 5 MG/ML VIAL IVP SCH ×6 (00:58→21:18)
[2020-01-13] MEDS: fentaNYL 2,500 MCG in SODIUM CHLORIDE 0.9% 200 ML IV SCH ×3 (03:57→18:06)
[2020-01-13] MEDS: LORazepam 2 MG/ML VIAL IVP SCH ×3 (06:20→18:11)
[2020-01-13] MEDS: SENNA 8.6 MG TABLET PO SCH (07:29)
--- NOTE | 2020-01-13 08:05 | PROVIDER PROGRESS NOTE ---
Hospitalist Cross-cover Note - Cross-Cover Note Cross-Cover Note: Omari has been more calm today, not heard from outside her room. Her mouth is open most of the time. Urine in burnett bag appears very dark, thick, and concentrated. Remains on high dose fentanyl infusion (400 mcg per hour), with as needed, IV fentanyl & IV lorazepam for breakthrough symptom management, also on IV Haldol with increased dosing. Dr. Calvin adjusted continuous infusion based on PRN doses and patient's symptoms LEROY Sen 01/12/2020@ 2235 PM
[2020-01-13] MEDS: fentaNYL 100 MCG/2 ML VIAL IVP PRN (08:56)
[2020-01-13] MEDS: PANTOPRAZOLE 40 MG VIAL IVP SCH ×2 (09:41→21:19)
--- NOTE | 2020-01-13 19:54 | PROVIDER PROGRESS NOTE ---
Customer Engagement Manager Note - Customer Engagement Manager Note Customer Engagement Manager Note: I was called to bedside because patient was non-responsive. On examination, she was non responsive to tactile or verbal stimuli Carotid and radial pulses were absent bilaterally. Pupils were fixed dilated and unreactive to light There were no spontaneous respirations Cardiac and breath sounds were absent on auscultation Patient was pronounced with time of at 19:38pm on 01/13/2020 Next of kin Cj Kim (son) was notified.
--- NOTE | 2020-01-13 19:55 | DISCHARGE SUMMARY ---
"Discharge Summary Admit Date: 12/17/19 Discharge Date: 01/13/20 Discharging Provider: Nancy Burks Primary Care Provider: Yamileth Chamberlain Code Status: Do Not Attempt Resuscitation Discharge Disposition: 20 - DIAGNOSES Admission Diagnoses: 1. Pancreatic cancer with metastasis 2. Cancer pain 3. Hospice Care Patient Discharge Diagnoses with Status of Each Condition: 1. Pancreatic cancer with metastasis: 2. Cancer pain. 3. Hospice Care Patient. - HPI History of Present Illness: Patient is a 54 y/o female with pancreatic cancer with metastasis, who is under Hospice care. She is on high doses of fentanyl and despite this has had breakthrough pain. She also has anxiety on Ativan. She is being placed in the inpatient setting at the request of Dr Tone Calvin for IV medication for pain control. The entire history is obtained from Dr Calvin, since the patient is currently sedated and not arousable - CONSULTS | PROCEDURES Consultations: Hospice Care: Dr Zaid Calvin - HOSPITAL COURSE Hospital Course: Patient was eventually placed on a fentanyl drip. She was also receiving prn fentanyl IV, scheduled lorazepam and haldol. The fentanyl infusion was titrated up over the duration of her stay to achieve better pain control. Patient could be heard crying out on many nights. This was due to a combination emotional distress and pain. Some days she was able to talk about these. She continued to slowly declined through out her stay in the hospital. She became less responsive and had minimal nutritional intake. In the evening on 01/13/2020, I was called to bedside because patient was non-responsive. On examination, she was non responsive to tactile or verbal stimuli Carotid and radial pulses were absent bilaterally. Pupils were fixed dilated and unreactive to light. There were no spontaneous respirations. Cardiac and breath sounds were absent on auscultation. Patient was pronounced with time of at 19:38pm on 01/13/2020 - ALLERGIES Allergies/Adverse Reactions: Allergies Allergy/AdvReac Type Severity Reaction Status Date / Time Penicillins Allergy Severe Hives Verified 12/18/19 15:02 gabapentin [From Neurontin] AdvReac Intermediate Unknown Verified 12/18/19 15:02 Iodinated Contrast Media AdvReac Intermediate Unknown Verified 12/18/19 15:02 paroxetine [From Paxil] AdvReac Intermediate Unknown Verified 12/18/19 15:02 - MEDICATIONS Home Medications: Ambulatory Orders Medication Instructions Recorded Confirmed Duloxetine HCl [Cymbalta] 60 mg PO DAILY 12/18/19 12/18/19 Haloperidol Lactate [Haloperidol 1 mg PO Q6HR PRN 12/18/19 12/18/19 Lactate (Oral soln bottle)] LORazepam [Lorazepam] 2 mg PO Q1H PRN 12/18/19 12/18/19 Levothyroxine [Synthroid] 100 mcg PO QDAC 12/18/19 12/18/19 Metoclopramide HCl 5 mg PO AC 12/18/19 12/18/19 Morphine Sulfate [Morphine Sulf 80 mg PO Q1H PRN 12/18/19 12/18/19 Oral (Roxanol)] Omeprazole 20 mg PO BID 12/18/19 12/18/19 Prochlorperazine [Compazine] 5 mg PO Q6H PRN 12/18/19 12/18/19 Senna [Senokot] 17.2 mg PO DAILY 12/18/19 12/18/19 dexAMETHasone [Decadron] 4 mg PO BIDWM 12/18/19 12/18/19 fentaNYL [Fentanyl 100mcg patch] 3 patch TD Q2D 12/18/19 12/18/19 fentaNYL [Fentanyl 50mcg patch] 1 patch TD Q2D 12/18/19 12/18/19 oxyCODONE [Roxicodone] 60 mg PO Q3H PRN 12/18/19 12/18/19 polyethylene glycoL 3350 [Miralax] 17 gm PO BID 12/18/19 12/18/19 - TIME SPENT Time Spent in Discharge (Minutes): 31"
--- NOTE | 2020-01-13 19:55 | Discharge Plan ---
Discharge Plan Problem Reviewed?: Yes Disposition: 20 Health Concerns: Patient Plan of Treatment: Patient Care Goals: Patient No Smoking: If you smoke, Please STOP! Call for help.
== END 2020-01-13 19:38 | disposition expired | DRG 948 ==
LOC: MS2 15:22
PROVIDERS: ADMIT Internal Medicine; ATTEND Internal Medicine
DX: G89.3 Neoplasm related pain (acute) (chronic) (principal); C25.9 Malignant neoplasm of pancreas, unspecified; C78.7 Secondary malignant neoplasm of liver and intrahepatic bile duct; C78.00 Secondary malignant neoplasm of unspecified lung; R41.0 Disorientation, unspecified; F41.9 Anxiety disorder, unspecified; E07.9 Disorder of thyroid, unspecified; R09.02 Hypoxemia; R33.9 Retention of urine, unspecified; R12 Heartburn; M79.89 Other specified soft tissue disorders; Z51.5 Encounter for palliative care; Z66 Do not resuscitate; Z79.899 Other long term (current) drug therapy; Z78.1 Physical restraint status; Z79.891 Long term (current) use of opiate analgesic; Z86.79 Personal history of other diseases of the circulatory system; Z90.411 Acquired partial absence of pancreas; Z95.828 Presence of other vascular implants and grafts
CPT/HCPCS: A9270; J2060; J3010; J7040

== ENCOUNTER 2019-12-17 14:39 | Outpatient (CLI) | payer OTHER | END 2019-12-17 14:40 | disposition critical access hospital (66) | LOC: EMS 14:39 | PROVIDERS: ATTEND Surgery | DX: Z51.5 Encounter for palliative care (principal); G89.3 Neoplasm related pain (acute) (chronic) | CPT/HCPCS: A0425; A0428 ==